=== PATIENT | female | born 1960 | race Caucasian/White ===

== ENCOUNTER 2024-01-05 08:24 | Emergency (ER) | payer MEDICARE, OTHER ==
--- NOTE | 2024-01-05 09:26 | XR ---
EXAMINATION TYPE: XR chest 2V DATE OF EXAM: 01/05/2024 COMPARISON: None HISTORY: 63 year-old female shortness of breath, difficulty breathing TECHNIQUE: AP and lateral views FINDINGS: Heart borderline enlarged. Interstitial density. Hyperinflation. Nodular density at the right base ma y represent nipple shadow. Narrowing of the subacromial space on both sides. No consolidation or pleu ral effusion. IMPRESSION: 1. Borderline cardiomegaly and COPD. Interstitial prominence probably representing bronchitis or asth ma. No focal infiltrate seen. 2. Nodular density right base may represent nipple shadow. An abnormal pulmonary nodule is not exclud ed at this time. Recommend outpatient CT follow-up to exclude a suspicious pulmonary nodule.
[2024-01-05] MEDS: methylPREDNISolone SOD SUCCI 125 MG/2 ML VIAL IV STA (09:53)
[2024-01-05 10:10] LABS: Anisocytosis Slight; Basophils % (A) 0 %; Eosinophils # (A) 0.1 k/uL (0-0.7); Eosinophils % (A) 1 %; HCT 30.3 % (34.0-46.0); HGB 8.6 gm/dL (11.4-16.0); Hypochromasia Marked; Lymphocytes # (A) 1.1 k/uL (1.0-4.8); Lymphocytes % (A) 9 %; MCH 19.3 pg (25.0-35.0); MCHC 28.5 g/dL (31.0-37.0); MCV 67.5 fL (80.0-100.0); Microcytosis Marked; Monocytes # (A) 0.4 k/uL (0-1.0); Monocytes % (A) 3 %; Neutrophils # (A) 10.5 k/uL (1.3-7.7); Neutrophils % (A) 86 %; Platelet Count 407 k/uL (150-450); Poikilocytosis Slight; RBC 4.49 m/uL (3.80-5.40); RDW 19.3 % (11.5-15.5); WBC 12.3 k/uL (3.8-10.6)
[2024-01-05 10:22] LABS: ALT 17 U/L (4-34); AST 39 U/L (14-36); African American GFR (CKD) >90 (>60 ml/min/1.73 sqM); Albumin 3.4 g/dL (3.5-5.0); Alkaline Phosphatase 83 U/L (38-126); Anion Gap 3 mmol/L; Blood Urea Nitrogen 9 mg/dL (7-17); Calcium 8.7 mg/dL (8.4-10.2); Carbon Dioxide 32 mmol/L (22-30); Chloride 102 mmol/L (98-107); Glucose 96 mg/dL (74-99); Magnesium 2.2 mg/dL (1.6-2.3); Non-African American GFR(CKD) >90 (>60 ml/min/1.73 sqM); Potassium 4.4 mmol/L (3.5-5.1); Sodium 137 mmol/L (137-145); Total Bilirubin 0.5 mg/dL (0.2-1.3); Total Protein 6.4 g/dL (6.3-8.2)
--- NOTE | 2024-01-05 10:22 | ED ---
General Adult HPI - General Chief complaint: Shortness of Breath Stated complaint: TREVOR, RM air 96% Time Seen by Provider: 01/05/24 08:29 Source: patient, EMS, RN notes reviewed Mode of arrival: EMS Limitations: no limitations - History of Present Illness Initial comments: 63-year-old female presents emergency department from [place] with chief complaint of shortness of breath. She states that she had pneumonia and was hospitalized in [place]. Patient states that she was discharged on oral antibiotics but she believes she never finished the course of medication. Patient states she does have COPD and is felt short of breath last few days daniele g with fever chills and bodyaches. Patient denies chest pain denies abdominal pain states she is extremely fatigued patient - Related Data Home Medications Medication Instructions Recorded Confirmed Acetaminophen Tab [Tylenol] 650 mg PO Q4H PRN 01/05/24 01/05/24 Calcium/Magnesium/Zinc/Vitamin D 1 tab PO DAILY PRN 01/05/24 01/05/24 Chlorpheniramine Maleate 4 mg PO Q4H PRN 01/05/24 01/05/24 [Chlor-Trimeton] Docusate [Colace] 100 mg PO BID PRN 01/05/24 01/05/24 Ibuprofen [Motrin Ib] 600 mg PO Q6H PRN 01/05/24 01/05/24 Loperamide HCl [Imodium A-D] 4 mg PO BID PRN 01/05/24 01/05/24 Mag Hydrox/Aluminum Hyd/Simeth 30 ml PO Q4H PRN 01/05/24 01/05/24 [Mylanta Maximum Strength Liq] Magnesium Hydroxide [Milk of 2,400 mg PO BID PRN 01/05/24 01/05/24 Magnesia] Multivitamins, Thera [Multivitamin 1 tab PO DAILY 01/05/24 01/05/24 (formulary)] Thiamine [Vitamin B-1] 100 mg PO DAILY 01/05/24 01/05/24 guaiFENesin [guaiFENesin Oral 200 mg PO Q4H PRN 01/05/24 01/05/24 Solution] ondansetron HCL [Zofran] 8 mg PO Q6H PRN 01/05/24 01/05/24 Previous Rx's Medication Instructions Recorded Azithromycin [Zithromax Z Pack] 0 tab PO DIRECTED #6 tab 01/05/24 predniSONE 50 mg PO DAILY #5 tab 01/05/24 Allergies Allergy/AdvReac Type Severity Reaction Status Date / Time No Known Allergies Allergy Verified 01/05/24 10:08 Review of Systems ROS Statement: Those systems with pertinent positive or pertinent negative responses have been documented in the HPI. ROS Other: All systems not noted in ROS Statement are negative. Past Medical History Past Medical History: COPD, Hypertension History of Any Multi-Drug Resistant Organisms: None Reported Past Surgical History: No Surgical Hx Reported Past Psychological History: No Psychological Hx Reported Smoking Status: Current every day smoker Past Alcohol Use History: Abuse General Exam Limitations: no limitations General appearance: alert, in no apparent distress Head exam: Present: atraumatic, normocephalic, normal inspection Eye exam: Present: normal appearance, PERRL, EOMI. Absent: scleral icterus, conjunctival injection, periorbital swelling ENT exam: Present: normal exam, normal oropharynx, mucous membranes moist Neck exam: Present: normal inspection, full ROM. Absent: tenderness, meningismus, lymphadenopathy Respiratory exam: Present: wheezes. Absent: normal lung sounds bilaterally, respiratory distress, rales, rhonchi, stridor Cardiovascular Exam: Present: regular rate, normal rhythm, normal heart sounds. Absent: systolic murmur, diastolic murmur, rubs, gallop, clicks GI/Abdominal exam: Present: soft, normal bowel sounds. Absent: distended, tenderness, guarding, rebound, rigid Course Vital Signs 01/05/24 01/05/24 01/05/24 08:34 08:38 09:51 Temperature 98.6 F Pulse Rate 69 74 Respiratory 22 22 20 Rate Blood Pressure 176/96 152/103 O2 Sat by Pulse 93 L 94 L Oximetry 01/05/24 01/05/24 10:28 11:06 Temperature Pulse Rate 77 83 Respiratory 18 Rate Blood Pressure 170/88 O2 Sat by Pulse 94 L Oximetry EKG Findings - EKG Comments: EKG Findings:: EKG performed at 8: 50 sinus rhythm rate of 70 MT 122 QRS 87 QT/QTc 406/427 - EKG Results: EKG: interpreted by ORQUIDEA Medical Decision Making - Medical Decision Making Was pt. sent in by a medical professional or institution (, PA, E COMMERCE ANALYST, urgent care, hospital, or retirement...) When possible be specific @ -[place] Did you speak to anyone other than the patient for history (EMS, parent, family, police, friend...)? What history was obtained from this source @ -No Did you review nursing and triage notes (agree or disagree)? Why? @ -I reviewed and agree with nursing and triage notes Were old charts reviewed (outside hosp., previous admission, EMS record, old EKG, old radiological studies, urgent care reports/EKG's, retirement records)? Report findings @ -[Reviewed records from [place] Differential Diagnosis (chest pain, altered mental status, abdominal pain women, abdominal pain men, vaginal bleeding, weakness, fever, dyspnea, syncope, headache, dizziness, GI bleed, back pain, seizure, CVA, palpatations, mental health, musculoskeletal)? @ -Differential Dyspnea: Coronary syndrome, arrhythmia, tamponade, asthma, COPD, pulmonary embolism, pneumonia, pneumothorax, pulmonary effusion, anaphylaxis, diabetic ketoacidosis, flailed chest, pulmonary contusion, diaphragmatic rupture, anemia, neuromuscular, this is not meant to be an all-inclusive list. EKG interpreted by me (3pts min.). @ -[As above X-rays interpreted by me (1pt min.). @ -[Chest x-ray shows COPD changes, no definite infiltrate, possible nodule CT interpreted by me (1pt min.). @ -None done U/S interpreted by me (1pt. min.). @ -None done What testing was considered but not performed or refused? (CT, X-rays, U/S, labs)? Why? @ -None What meds were considered but not given or refused? Why? @ -None Did you discuss the management of the patient with other professionals (professionals i.e. , PA, E COMMERCE ANALYST, lab, RT, psych nurse, social work professor, embedded software design engineer, teacher, customs officer, case liner)? Give summary @ -No Was smoking cessation discussed for >3mins.? @ -No Was critical care preformed (if so, how long)? @ -No Were there social determinants of health that impacted care today? How? (Homelessness, low income, unemployed, alcoholism, drug addiction, transportation, low edu. Level, literacy, decrease access to med. care, long-term, rehab)? @ -No Was there de-escalation of care discussed even if they declined (Discuss DNR or withdrawal of care, Hospice)? DNR status @ -No What co-morbidities impacted this encounter? (DM, HTN, Smoking, COPD, CAD, Cancer, CVA, ARF, Chemo, Hep., AIDS, mental health diagnosis, sleep apnea, morbid obesity)? @ -Cocaine abuse, COPD Was patient admitted / discharged? Hospital course, mention meds given and route, prescriptions, significant lab abnormalities, going to OR and other pertinent info. @ -[Discharge patient had no hypoxia in the emergency department she was observed for several hours. She was 94% and above and shows no signs distress. Patient reports recent pneumonia patient will be given antibiotics, steroids for her COPD exacerbation. Return transfer discussed. Attending Dr. Curry Undiagnosed new problem with uncertain prognosis? @ -No Drug Therapy requiring intensive monitoring for toxicity (Heparin, Nitro, Insulin, Cardizem)? @ -No Were any procedures done? @ -No Diagnosis/symptom? @ -COPD exacerbation Acute, or Chronic, or Acute on Chronic? @ -[Acute Uncomplicated (without systemic symptoms) or Complicated (systemic symptoms)? @ -Complicated Side effects of treatment? @ -No Exacerbation, Progression, or Severe Exacerbation? @ -Yes Poses a threat to life or bodily function? How? (Chest pain, [place], [place], pneumonia, PE, COPD, DKA, ARF, appy, cholecystitis, CVA, Diverticulitis, Homicidal, Suicidal, threat to staff... and all critical care pts) @ -Yes low likelihood, COPD exacerbation - Lab Data Result diagrams: 01/05/24 08:55 01/05/24 08:55 Lab Results 01/05/24 01/05/24 01/05/24 Range/Units 08:55 08:55 08:55 WBC 12.3 H (3.8-10.6) k/uL RBC 4.49 (3.80-5.40) m/uL Hgb 8.6 L (11.4-16.0) gm/dL Hct 30.3 L (34.0-46.0) % MCV 67.5 L (80.0-100.0) fL MCH 19.3 L (25.0-35.0) pg MCHC 28.5 L (31.0-37.0) g/dL RDW 19.3 H (11.5-15.5) % Plt Count 407 (150-450) k/uL MPV 7.0 Neutrophils % 86 % Lymphocytes % 9 % Monocytes % 3 % Eosinophils % 1 % Basophils % 0 % Neutrophils # 10.5 H (1.3-7.7) k/uL Lymphocytes # 1.1 (1.0-4.8) k/uL Monocytes # 0.4 (0-1.0) k/uL Eosinophils # 0.1 (0-0.7) k/uL Basophils # 0.0 (0-0.2) k/uL Hypochromasia Marked Poikilocytosis Slight Anisocytosis Slight Microcytosis Marked Sodium 137 (137-145) mmol/L Potassium 4.4 (3.5-5.1) mmol/L Chloride 102 (98-107) mmol/L Carbon Dioxide 32 H (22-30) mmol/L Anion Gap 3 mmol/L BUN 9 (7-17) mg/dL Creatinine 0.54 (0.52-1.04) mg/dL Est GFR (CKD-EPI)AfAm >90 (>60 ml/min/1.73 sqM) Est GFR (CKD-EPI)NonAf >90 (>60 ml/min/1.73 sqM) Glucose 96 (74-99) mg/dL Plasma Lactic Acid Sandro 1.0 (0.7-2.0) mmol/L Calcium 8.7 (8.4-10.2) mg/dL Magnesium 2.2 (1.6-2.3) mg/dL Total Bilirubin 0.5 (0.2-1.3) mg/dL AST 39 H (14-36) U/L ALT 17 (4-34) U/L Alkaline Phosphatase 83 (38-126) U/L NT-Pro-B Natriuret Pep 2030 pg/mL Total Protein 6.4 (6.3-8.2) g/dL Albumin 3.4 L (3.5-5.0) g/dL Influenza Type A (PCR) (Not Detectd) Influenza Type B (PCR) (Not Detectd) RSV (PCR) (Not Detectd) SARS-CoV-2 (PCR) (Not Detectd) 01/05/24 Range/Units 08:55 WBC (3.8-10.6) k/uL RBC (3.80-5.40) m/uL Hgb (11.4-16.0) gm/dL Hct (34.0-46.0) % MCV (80.0-100.0) fL MCH (25.0-35.0) pg MCHC (31.0-37.0) g/dL RDW (11.5-15.5) % Plt Count (150-450) k/uL MPV Neutrophils % % Lymphocytes % % Monocytes % % Eosinophils % % Basophils % % Neutrophils # (1.3-7.7) k/uL Lymphocytes # (1.0-4.8) k/uL Monocytes # (0-1.0) k/uL Eosinophils # (0-0.7) k/uL Basophils # (0-0.2) k/uL Hypochromasia Poikilocytosis Anisocytosis Microcytosis Sodium (137-145) mmol/L Potassium (3.5-5.1) mmol/L Chloride (98-107) mmol/L Carbon Dioxide (22-30) mmol/L Anion Gap mmol/L BUN (7-17) mg/dL Creatinine (0.52-1.04) mg/dL Est GFR (CKD-EPI)AfAm (>60 ml/min/1.73 sqM) Est GFR (CKD-EPI)NonAf (>60 ml/min/1.73 sqM) Glucose (74-99) mg/dL Plasma Lactic Acid Sandro (0.7-2.0) mmol/L Calcium (8.4-10.2) mg/dL Magnesium (1.6-2.3) mg/dL Total Bilirubin (0.2-1.3) mg/dL AST (14-36) U/L ALT (4-34) U/L Alkaline Phosphatase (38-126) U/L NT-Pro-B Natriuret Pep pg/mL Total Protein (6.3-8.2) g/dL Albumin (3.5-5.0) g/dL Influenza Type A (PCR) Not Detected (Not Detectd) Influenza Type B (PCR) Not Detected (Not Detectd) RSV (PCR) Not Detected (Not Detectd) SARS-CoV-2 (PCR) Not Detected (Not Detectd) Disposition Clinical Impression: COPD exacerbation Disposition: HOME SELF-CARE Condition: Stable Instructions (If sedation given, give patient instructions): COPD (Chronic Obstructive Pulmonary Disease) (ED) Additional Instructions: Please return to the Emergency Department if symptoms worsen or any other concerns. Prescriptions: predniSONE 50 mg PO DAILY #5 tab Azithromycin [Zithromax Z Pack] 0 tab PO DIRECTED #6 tab Is patient prescribed a controlled substance at d/c from ED?: No Referrals: None,Stated [Primary Care Provider] - 1-2 days Time of Disposition: 11:20
[2024-01-05 10:27] LABS: NT-Pro-B-Type Natriuretic Pept 2030 pg/mL
[2024-01-05 10:30] VITALS: RESP 18
[2024-01-05] MEDS ORDERED: MORPHINE SULFATE 4 MG/ML SYRINGE IM STA (10:59)
[2024-01-05] MEDS: IPRATROPIUM-ALBUTEROL 3 ML NEB INHALATION STA (11:06)
[2024-01-05] MEDS: cefTRIAXone IN SWFI 1,000 MG/10 ML SYRINGE IVP STA (11:40)
[2024-01-05 12:13] VITALS: BP 177/88; PULSE 80; TEMP 98.1
== END 2024-01-05 11:55 | disposition home or self-care (01) ==
LOC: EC 08:24
DX: J44.1 Chronic obstructive pulmonary disease with (acute) exacerbation (principal); I10 Essential (primary) hypertension; F17.200 Nicotine dependence, unspecified, uncomplicated; I25.2 Old myocardial infarction; Z20.822 Contact with and (suspected) exposure to COVID-19
CPT/HCPCS: 36415; 94640; 93005; 83880; 80053; 83605; 83735; 85025; 87636; 71046; 99285; 96374; 96375; J2930; J0696

== ENCOUNTER 2024-01-11 20:03 | Inpatient (IN) | payer MEDICARE ==
--- NOTE | 2024-01-11 20:18 | ED ---
General Adult HPI - General Chief complaint: Shortness of Breath Stated complaint: Shortness of Breath Time Seen by Provider: 01/11/24 20:14 Source: patient, EMS Mode of arrival: EMS - History of Present Illness Initial comments: This patient is 63-year-old woman who arrives here from [facility] to have evaluation for shortness of breath and cough. The patient states this been getting worse over the past 2 days. She has not noted definite fever. She states that it feels similar to previous episode of pneumonia. In addition the patient states she has been having problems with constipation going back approximately one week. She states that her last bowel movement was approximately 5 or 6 days ago and she describes as "a torpedo". She complains of diffuse abdominal cramping and urge to defecate Onset/Timin -: days(s) Location: abdomen Radiation: non-radiation Quality: other (Cramping pain) Consistency: constant Improves with: none Worsens with: none Associated Symptoms: cough, other (Constipation) Treatments Prior to Arrival: none - Related Data Home Medications Medication Instructions Recorded Confirmed Acetaminophen Tab [Tylenol] 650 mg PO Q4H PRN 01/05/24 01/11/24 Multivitamins, Thera [Multivitamin 1 tab PO DAILY 01/05/24 01/11/24 (formulary)] Thiamine [Vitamin B-1] 100 mg PO DAILY 01/05/24 01/11/24 guaiFENesin [guaiFENesin Oral 200 mg PO Q4H PRN 01/05/24 01/11/24 Solution] ondansetron HCL [Zofran] 8 mg PO Q6H PRN 01/05/24 01/11/24 Albuterol Nebulized [Ventolin 2.5 mg INHALATION RT-Q4H PRN 01/11/24 01/11/24 Nebulized] Previous Rx's Medication Instructions Recorded Aspirin 81 mg PO DAILY #30 tab 01/14/24 Atorvastatin [Lipitor] 40 mg PO DAILY #30 tab 01/14/24 Budesonide-Formot 160-4.5 Mcg 2 puff INHALATION RT-BID #1 each 01/14/24 [Symbicort 160-4.5 Mcg Inhaler] Docusate [Colace] 100 mg PO BID #60 capsule 01/14/24 Ferrous Sulfate [Feosol] 325 mg PO BID #60 tab 01/14/24 Losartan [Cozaar] 75 mg PO DAILY 30 Days #90 tab 01/14/24 Nicotine 21Mg/24Hr Patch [Habitrol] 1 patch TRANSDERM DAILY patch 01/14/24 Omeprazole [PriLOSEC] 20 mg PO AC-BID #60 cap 01/14/24 Oseltamivir Phosphate 30 mg PO Q12H 5 Days #50 ml 01/14/24 predniSONE 0 mg PO DIRECTED 16 Days #38 tab 01/14/24 Allergies Allergy/AdvReac Type Severity Reaction Status Date / Time No Known Allergies Allergy Verified 01/11/24 21:44 Review of Systems ROS Statement: Those systems with pertinent positive or pertinent negative responses have been documented in the HPI. ROS Other: All systems not noted in ROS Statement are negative. Constitutional: Reports: fever, chills. Denies: weakness Respiratory: Reports: cough, dyspnea, wheezes. Denies: hemoptysis Cardiovascular: Denies: chest pain, palpitations, edema, syncope Gastrointestinal: Reports: abdominal pain, nausea, constipation. Denies: vomiting, diarrhea, melena, hematochezia Genitourinary: Denies: dysuria, hematuria Musculoskeletal: Denies: back pain Skin: Denies: rash Neurological: Denies: headache, weakness, numbness Past Medical History Past Medical History: COPD, Hypertension History of Any Multi-Drug Resistant Organisms: None Reported Past Surgical History: No Surgical Hx Reported Past Psychological History: No Psychological Hx Reported Smoking Status: Current every day smoker Past Alcohol Use History: Abuse - Past Family History Father Family Medical History: Congestive Heart Failure (CHF) Additional Family Medical History / Comment(s): Mother Family Medical History: Cancer Additional Family Medical History / Comment(s): lung. Sister(s) Family Medical History: COPD Additional Family Medical History / Comment(s): passes away General Exam General appearance: alert, in no apparent distress Head exam: Present: atraumatic, normocephalic Eye exam: Present: normal appearance. Absent: scleral icterus, conjunctival injection ENT exam: Present: normal oropharynx Neck exam: Present: normal inspection Respiratory exam: Present: wheezes, rales (Right base), rhonchi. Absent: respiratory distress, stridor, accessory muscle use, decreased breath sounds Cardiovascular Exam: Present: regular rate, normal rhythm, normal heart sounds. Absent: systolic murmur, diastolic murmur, rubs, gallop GI/Abdominal exam: Present: soft. Absent: distended, tenderness, guarding, rebound, rigid, mass Extremities exam: Present: normal inspection, normal capillary refill. Absent: pedal edema, calf tenderness Back exam: Present: normal inspection. Absent: CVA tenderness (R), CVA tenderness (L) Neurological exam: Present: alert Skin exam: Present: warm, dry, intact, normal color. Absent: rash Course Vital Signs 01/11/24 01/11/24 01/11/24 20:05 20:30 21:00 Temperature 102.4 F H Pulse Rate 93 95 89 Pulse Rate [ Pulse Oximetery ] Respiratory 20 32 H 22 Rate Blood Pressure 158/82 161/76 144/70 Blood Pressure [Right Arm] O2 Sat by Pulse 92 L 91 L 98 Oximetry 01/11/24 01/11/24 01/11/24 21:08 21:30 22:00 Temperature Pulse Rate 97 93 89 Pulse Rate [ Pulse Oximetery ] Respiratory 24 25 H 26 H Rate Blood Pressure 158/80 158/80 176/86 Blood Pressure [Right Arm] O2 Sat by Pulse 93 L 93 L 95 Oximetry 01/11/24 01/11/24 01/12/24 22:30 23:00 00:21 Temperature Pulse Rate 89 87 88 Pulse Rate [ Pulse Oximetery ] Respiratory 27 H 24 Rate Blood Pressure 161/88 158/80 Blood Pressure [Right Arm] O2 Sat by Pulse 93 L 93 L Oximetry 01/12/24 01/12/24 01/12/24 00:25 00:32 01:35 Temperature 100.1 F H 98.1 F Pulse Rate 99 Pulse Rate [ Pulse Oximetery ] Respiratory Rate Blood Pressure Blood Pressure [Right Arm] O2 Sat by Pulse Oximetry 01/12/24 01/12/24 01/12/24 03:53 06:33 06:40 Temperature Pulse Rate 78 100 89 Pulse Rate [ Pulse Oximetery ] Respiratory 24 19 Rate Blood Pressure 130/91 168/83 Blood Pressure [Right Arm] O2 Sat by Pulse 99 98 Oximetry 01/12/24 01/12/24 01/12/24 06:46 07:25 08:57 Temperature Pulse Rate 94 83 Pulse Rate [ Pulse Oximetery ] Respiratory Rate Blood Pressure 168/83 Blood Pressure [Right Arm] O2 Sat by Pulse 100 96 Oximetry 01/12/24 01/12/24 01/12/24 10:30 12:11 12:22 Temperature Pulse Rate 91 89 Pulse Rate [ 85 Pulse Oximetery ] Respiratory 22 Rate Blood Pressure Blood Pressure [Right Arm] O2 Sat by Pulse 98 Oximetry 01/12/24 01/12/24 14:23 15:05 Temperature 98.0 F Pulse Rate Pulse Rate [ 76 81 Pulse Oximetery ] Respiratory 18 16 Rate Blood Pressure Blood Pressure 102/52 133/69 [Right Arm] O2 Sat by Pulse 97 94 L Oximetry EKG Findings - EKG Results: EKG: interpreted by ERMD, sinus rhythm (With occasional supraventricular premature complexes, rate 95 bpm), normal axis - HI, Pacemaker, Normal: Myocardial infarction: septal HI (old age or indeterminate) Medical Decision Making - Medical Decision Making The patient had chest x-ray which I interpreted to show right lower lobe infiltrate. I also suspect underlying COPD. The patient was sent for computed tomography scan of the abdomen which I interpreted to show changes concerning for possible intussusception versus possible postsurgical change related to gastric bypass. This was discussed with Dr. Wilson who will see the patient as medical sales consultant tomorrow. Was pt. sent in by a medical professional or institution (, PA, INFORMATICS DEVELOPER, urgent care, hospital, or long term...) When possible be specific @ -[No] Did you speak to anyone other than the patient for history (EMS, parent, family, police, friend...)? What history was obtained from this source @ -[No] Did you review nursing and triage notes (agree or disagree)? Why? @ -[I reviewed and agree with nursing and triage notes] Were old charts reviewed (outside hosp., previous admission, EMS record, old EKG, old radiological studies, urgent care reports/EKG's, long term records)? Report findings @ -[No old charts were reviewed] Differential Diagnosis (chest pain, altered mental status, abdominal pain women, abdominal pain men, vaginal bleeding, weakness, fever, dyspnea, syncope, headache, dizziness, GI bleed, back pain, seizure, CVA, palpatations, mental health, musculoskeletal)? @ -[Differential Dyspnea: Coronary syndrome, arrhythmia, tamponade, asthma, COPD, pulmonary embolism, pneumonia, pneumothorax, pulmonary effusion, anaphylaxis, diabetic ketoacidosis, flailed chest, pulmonary contusion, diaphragmatic rupture, anemia, neuromuscular, this is not meant to be an all-inclusive list. Differential Abdominal Pain Women: Appendicitis, Cholecystitis, diverticulosis, ischemic bowel, pancreatitis, hepatitis, UTI, gastroenteritis, AAA, incarcerated hernia, bowel obstruction, constipation, inflammatory bowel, hepatitis, peptic ulcer disease, splenic infarction, perforated viscus, vulvitis, ovarian torsion, PID, kidney stone, placenta abruption, this is not meant to be an all-inclusive list EKG interpreted by me (3pts min.). @ -[I interpreted as above X-rays interpreted by me (1pt min.). @ -[I interpreted as above CT interpreted by me (1pt min.). @ -[I interpreted as above U/S interpreted by me (1pt. min.). @ -[None done] What testing was considered but not performed or refused? (CT, X-rays, U/S, labs)? Why? @ -[None] What meds were considered but not given or refused? Why? @ -[None] Did you discuss the management of the patient with other professionals (professionals i.e. , PA, INFORMATICS DEVELOPER, lab, RT, psych nurse, social worker masters, ultrasound technol, teacher, personal banking officer, case resolution specialist)? Give summary @ -[The patient's case discussed with the admitting physician and with the surgical product sales consultant and treatment recommendations are incorporated Was smoking cessation discussed for >3mins.? @ -[Yes, discussed smoking cessation Was critical care preformed (if so, how long)? @ -[No] Were there social determinants of health that impacted care today? How? (Homelessness, low income, unemployed, alcoholism, drug addiction, transportation, low edu. Level, literacy, decrease access to med. care, fci, rehab)? @ -[No] Was there de-escalation of care discussed even if they declined (Discuss DNR or withdrawal of care, Hospice)? DNR status @ -[No] What co-morbidities impacted this encounter? (DM, HTN, Smoking, COPD, CAD, Cancer, CVA, ARF, Chemo, Hep., AIDS, mental health diagnosis, sleep apnea, morbid obesity)? @ -[COPD, smoking Was patient admitted / discharged? Hospital course, mention meds given and route, prescriptions, significant lab abnormalities, going to OR and other pertinent info. @ -[The patient will be admitted to have further treatment for COPD exacerbation with possible right lower lobe infiltrate. Patient will also have surgical consultation related to her abdominal pain. Cardiology consultation related to NSTEMI Undiagnosed new problem with uncertain prognosis? @ -[No] Drug Therapy requiring intensive monitoring for toxicity (Heparin, Nitro, Insulin, Cardizem)? @ -[No] Were any procedures done? @ -[No] Diagnosis/symptom? @ -[Acute exacerbation of COPD Acute influenza Possible right lower lobe infiltrate Acute abdominal pain Acute NSTEMI Acute, or Chronic, or Acute on Chronic? @ -[Acute on chronic COPD, other conditions acute Uncomplicated (without systemic symptoms) or Complicated (systemic symptoms)? @ -[Uncomplicated Side effects of treatment? @ -[No] Exacerbation, Progression, or Severe Exacerbation? @ -[No] Poses a threat to life or bodily function? How? (Chest pain, USA, HI, pneumonia, PE, COPD, DKA, ARF, appy, cholecystitis, CVA, Diverticulitis, Homicidal, Suicidal, threat to staff... and all critical care pts) @ -[Yes - Lab Data Result diagrams: 01/13/24 09:05 01/11/24 20:45 Lab Results 01/11/24 01/11/24 01/11/24 Range/Units 20:45 20:45 20:45 WBC 11.9 H (3.8-10.6) k/uL RBC 3.95 (3.80-5.40) m/uL Hgb 7.7 L (11.4-16.0) gm/dL Hct 26.6 L (34.0-46.0) % MCV 67.4 L (80.0-100.0) fL MCH 19.4 L (25.0-35.0) pg MCHC 28.8 L (31.0-37.0) g/dL RDW 19.5 H (11.5-15.5) % Plt Count 417 (150-450) k/uL MPV 7.7 Neutrophils % 90 % Lymphocytes % 4 % Monocytes % 4 % Eosinophils % 0 % Basophils % 0 % Neutrophils # 10.8 H (1.3-7.7) k/uL Lymphocytes # 0.5 L (1.0-4.8) k/uL Monocytes # 0.4 (0-1.0) k/uL Eosinophils # 0.0 (0-0.7) k/uL Basophils # 0.1 (0-0.2) k/uL Hypochromasia Marked Poikilocytosis Slight Anisocytosis Slight Microcytosis Marked PT 10.3 (10.0-12.5) sec INR 0.9 (<1.2) APTT 24.0 (22.0-30.0) sec Sodium 138 (137-145) mmol/L Potassium 4.0 (3.5-5.1) mmol/L Chloride 101 (98-107) mmol/L Carbon Dioxide 30 (22-30) mmol/L Anion Gap 7 mmol/L BUN 26 H (7-17) mg/dL Creatinine 0.80 (0.52-1.04) mg/dL Est GFR (CKD-EPI)AfAm >90 (>60 ml/min/1.73 sqM) Est GFR (CKD-EPI)NonAf 80 (>60 ml/min/1.73 sqM) Glucose 88 (74-99) mg/dL Plasma Lactic Acid Sandro (0.7-2.0) mmol/L Calcium 8.0 L (8.4-10.2) mg/dL Total Bilirubin 0.2 (0.2-1.3) mg/dL AST 34 (14-36) U/L ALT 22 (4-34) U/L Alkaline Phosphatase 80 (38-126) U/L Troponin I (0.000-0.034) ng/mL Total Protein 6.2 L (6.3-8.2) g/dL Albumin 3.4 L (3.5-5.0) g/dL Influenza Type A (PCR) (Not Detectd) Influenza Type B (PCR) (Not Detectd) RSV (PCR) (Not Detectd) SARS-CoV-2 (PCR) (Not Detectd) 01/11/24 01/11/24 01/11/24 Range/Units 20:45 20:45 20:45 WBC (3.8-10.6) k/uL RBC (3.80-5.40) m/uL Hgb (11.4-16.0) gm/dL Hct (34.0-46.0) % MCV (80.0-100.0) fL MCH (25.0-35.0) pg MCHC (31.0-37.0) g/dL RDW (11.5-15.5) % Plt Count (150-450) k/uL MPV Neutrophils % % Lymphocytes % % Monocytes % % Eosinophils % % Basophils % % Neutrophils # (1.3-7.7) k/uL Lymphocytes # (1.0-4.8) k/uL Monocytes # (0-1.0) k/uL Eosinophils # (0-0.7) k/uL Basophils # (0-0.2) k/uL Hypochromasia Poikilocytosis Anisocytosis Microcytosis PT (10.0-12.5) sec INR (<1.2) APTT (22.0-30.0) sec Sodium (137-145) mmol/L Potassium (3.5-5.1) mmol/L Chloride (98-107) mmol/L Carbon Dioxide (22-30) mmol/L Anion Gap mmol/L BUN (7-17) mg/dL Creatinine (0.52-1.04) mg/dL Est GFR (CKD-EPI)AfAm (>60 ml/min/1.73 sqM) Est GFR (CKD-EPI)NonAf (>60 ml/min/1.73 sqM) Glucose (74-99) mg/dL Plasma Lactic Acid Sandro 1.5 (0.7-2.0) mmol/L Calcium (8.4-10.2) mg/dL Total Bilirubin (0.2-1.3) mg/dL AST (14-36) U/L ALT (4-34) U/L Alkaline Phosphatase (38-126) U/L Troponin I 0.079 H* (0.000-0.034) ng/mL Total Protein (6.3-8.2) g/dL Albumin (3.5-5.0) g/dL Influenza Type A (PCR) Detected A (Not Detectd) Influenza Type B (PCR) Not Detected (Not Detectd) RSV (PCR) Not Detected (Not Detectd) SARS-CoV-2 (PCR) Not Detected (Not Detectd) Disposition Clinical Impression: Anemia, Sepsis, Influenza A, COPD (chronic obstructive pulmonary disease), NSTEMI (non-ST elevated myocardial infarction) Disposition: ADMITTED IP TO THIS HOSP Condition: Fair
--- NOTE | 2024-01-11 20:55 | XR ---
EXAMINATION TYPE: XR chest 2V DATE OF EXAM: 01/11/2024 COMPARISON: 01/05/2024 HISTORY: Difficulty breathing TECHNIQUE: Frontal and lateral views of the chest are obtained. FINDINGS: There is increasing partially consolidative opacity in the right lower lobe consistent with an acute pneumonia. There is mild diffuse interstitial prominence which may be chronic in nature. The pulmonary vasculature are normal. There is no pleural effusion. The osseous structures are intact. IMPRESSION: Acute cardiopulmonary disease and right lung base as described above. The findings are s uggestive of a developing pneumonia. Short-term follow-up to resolution is recommended.
[2024-01-11 20:56] LABS: Anisocytosis Slight; Basophils # (A) 0.1 k/uL (0-0.2); Basophils % (A) 0 %; Eosinophils % (A) 0 %; HCT 26.6 % (34.0-46.0); HGB 7.7 gm/dL (11.4-16.0); Hypochromasia Marked; Lymphocytes # (A) 0.5 k/uL (1.0-4.8); Lymphocytes % (A) 4 %; MCH 19.4 pg (25.0-35.0); MCHC 28.8 g/dL (31.0-37.0); MCV 67.4 fL (80.0-100.0); Mean Platelet Volume 7.7; Microcytosis Marked; Monocytes # (A) 0.4 k/uL (0-1.0); Monocytes % (A) 4 %; Neutrophils # (A) 10.8 k/uL (1.3-7.7); Neutrophils % (A) 90 %; Platelet Count 417 k/uL (150-450); Poikilocytosis Slight; RBC 3.95 m/uL (3.80-5.40); RDW 19.5 % (11.5-15.5); WBC 11.9 k/uL (3.8-10.6)
[2024-01-11 21:08] LABS: INR 0.9 (<1.2); Prothrombin Time 10.3 sec (10.0-12.5)
[2024-01-11 21:12] LABS: ALT 22 U/L (4-34); AST 34 U/L (14-36); African American GFR (CKD) >90 (>60 ml/min/1.73 sqM); Albumin 3.4 g/dL (3.5-5.0); Alkaline Phosphatase 80 U/L (38-126); Anion Gap 7 mmol/L; Blood Urea Nitrogen 26 mg/dL (7-17); Carbon Dioxide 30 mmol/L (22-30); Chloride 101 mmol/L (98-107); Glucose 88 mg/dL (74-99); Non-African American GFR(CKD) 80 (>60 ml/min/1.73 sqM); Sodium 138 mmol/L (137-145); Total Bilirubin 0.2 mg/dL (0.2-1.3); Total Protein 6.2 g/dL (6.3-8.2)
[2024-01-11] MEDS: SODIUM CHLORIDE 0.9% 1,100 ML IV ONE (21:29)
[2024-01-11] MEDS: AZITHROMYCIN 500 MG TAB PO STA (21:35)
[2024-01-11] MEDS: NA PHOS,M-B/NA PHOS,DI-BA 133 ML ENEMA RECTAL STA (22:31)
[2024-01-11] MEDS ORDERED: PNEUMONIA PROTOCOL UTILIZED 1 EACH MISC PO PRN (23:36)
[2024-01-11] MEDS ORDERED: ONDANSETRON ODT 4 MG TAB PO PRN (23:39)
--- NOTE | 2024-01-12 00:03 | CT ---
EXAMINATION TYPE: CT abdomen pelvis w con DATE OF EXAM: 01/11/2024 HISTORY: upper abdominal pain. History of lap band. CT DLP: 702.4mGycm Automated Exposure Control for Dose Reduction was Utilized. CONTRAST: CT scan of the abdomen and pelvis is performed with IV Contrast, patient injected with 100 ml mL of I sovue 300. COMPARISON: None. FINDINGS: LUNG BASES: Suboptimal evaluation due to motion artifact. No focal consolidation. Calcification at le dayan of the mitral valve is partially imaged LIVER/GB: Contracted gallbladder. Approximate 4 scattered subcentimeter hypodense lesions throughout the liver that are too small to further characterize. There is prominent right hepatic lobe and/or he patomegaly. PANCREAS: No significant abnormality is seen. SPLEEN: No significant abnormality is seen. ADRENALS: No significant abnormality is seen. KIDNEYS: There is 1 to 2 mm nonobstructing calculus upper pole left kidney coronal image 91. There is 3 mm nonobstructing calculus left kidney on image 84. There is 1.1 cm simple appearing thin-walled c yst in the left kidney image 22. No right-sided nephrolithiasis. There is symmetric cortical uptake a nd excretion without hydronephrosis seen bilaterally. No intraluminal calculus in the urinary bladder . Occasional tiny right-sided pelvic phlebolith. BOWEL: Evaluation of bowel suboptimal due to lack of enteric contrast and patient having little inter nal fat. No abnormal small or large bowel dilatation is seen. Surgical changes in the epigastric stacy on from gastric bypass are present. Bypass distal stomach shows poor distention with moderate to jennifer re wall thickening. Cannot exclude gastritis. Additional surgical sutures involving small bowel loops in the anterior upper pelvis. UTERUS/ADNEXA: No gross abnormality seen. LYMPH NODES: No greater than 1cm abdominal or pelvic lymph nodes are appreciated. OSSEOUS STRUCTURES: Mild Disc space narrowing with vacuum disc phenomenon left L5-S1 level. Moderate narrowing of both hip joints. Deformity to both hips is present. OTHER: Ectatic abdominal aorta with mild calcified plaque. IMPRESSION: Postsurgical change to the stomach suspect gastric bypass. Suboptimal evaluation of bowel . No bowel obstruction. Consider gastritis of the bypassed distal stomach. Correlate clinically.
[2024-01-12] MEDS: ALBUTEROL NEBULIZED 2.5 MG/3 ML INHALATION PRN (00:25)
[2024-01-12] MEDS: ACETAMINOPHEN TAB 325 MG TAB PO STA (00:36)
[2024-01-12] MEDS: SODIUM CHLORIDE 0.9% 1,000 ML IV STA (00:38)
--- NOTE | 2024-01-12 05:10 | P.CNPUL ---
History of Present Illness Consult date: 01/12/24 Requesting physician: Khoa Cleveland Reason for consult: COPD, pneumonia Chief complaint: Shortness of breath and cough History of present illness: I am seeing this patient in consultation today 01/12/2024 in the emergency room after she was sent in from [facility] after being found to be short of breath and hypoxic. Patient is a 63-year-old white female with past medical history significant for polysubstance abuse as well as heavy alcohol use, COPD, current everyday smoker, hypertension. She was also recently hospitalized at [facility] for pneumonia. She is unable to give me a clear date on when this occurred, states possibly a month ago. She states that she left AGAINST MEDICAL ADVICE, and is unlikely if patient ever completed a course of antibiotics. Patient is hypertalkative and aggressive with questioning. Of note, the patient was recently evaluated at our ED on 01/05/2024 for similar symptoms. Chest x-ray at that time showed borderline cardiomegaly and COPD. Interstitial prominence, possibly bronchitis. No focal infiltrates were seen at that time. There was possible a nodular density versus possible artifact and nipple shadowing. She was sent home from the emergency department with a Z-Osorio and prednisone burst taper. She was at [facility] when she was noted to be short of breath and hypoxic, and was sent to the emergency room last night. She will not answer direct questions about her previous alcohol/substance abuse. She yells that she is 17 years clean. Patient is complaining of multiple symptoms including shortness of breath, cough with green and yellow sputum, high fevers of 102 to 103 F. She is also having diffuse abdominal cramping and uncontrollable diarrhea. It is unclear on just how long the symptoms have been ongoing for. She states that she never really completely recovered from her hospitalization at [facility]. She was noted to be influenza A positive on arrival, note that this was negative on previous mentioned ER visit. Follow- up chest x-ray on this admission shows a right middle lobe infiltrate. There is also hyperinflation consistent with COPD. CBC on arrival: WC count 11.9, h emoglobin 7.7, hematocrit 26.6, platelets 417. BMP on arrival unremarkable. BUN 26, creatinine 0.8. Saline infusing at 130 MLS per hour. Lactic acid level 1.5. Troponins elevated at 0.079 and 0.085. She is not having any chest pain. ECG shows normal sinus rhythm with occasional supraventricular premature complexes. No obvious acute ischemic changes. Patient's major concern at this point is abdominal pain, diarrhea, and nausea and vomiting. She has had multiple bouts of diarrhea stool for this evening. Denies any keiry blood or melena. Denies any hematemesis. She has had a previous gastric bypass. Abdominal and pelvis CT with contrast shows postsurgical changes to the stomach suspect gastric bypass, technically suboptimal evaluation of bowel. No obvious bowel obstruction. She is currently at the edge of the bed, on 2 L/min nasal cannula, in no respiratory distress. SpO2 is 99% on bedside monitor. Tmax at our facility 102.4 F. Vital signs are stable. Review of Systems REVIEW OF SYSTEMS: CONSTITUTIONAL: Denies any recent significant weight loss or weight gain. EYES: Denies change in vision. EARS, NOSE, MOUTH, THROAT: Denies headaches, denies sore throat. CARDIOVASCULAR: Denies chest pain, palpitations or syncopal episodes. RESPIRATORY: See HPI. GASTROINTESTINAL: See HPI GENITOURINARY: Denies hematuria, denies infections. MUSKULOSKELETAL: Denies pain, denies swelling. INTEGUMENTARY: Denies rash, denies eczema. NEUROLOGICAL: Denies recent memory loss, no recent seizure activity. PSYCHIATRIC: Denies anxiety, denies depression. HEMATOLOGIC/LYMPHATIC: Denies anemia, denies enlarged lymph node Past Medical History Past Medical History: COPD, Hypertension History of Any Multi-Drug Resistant Organisms: None Reported Past Surgical History: No Surgical Hx Reported Past Psychological History: No Psychological Hx Reported Smoking Status: Current every day smoker Past Alcohol Use History: Abuse Medications and Allergies Home Medications Medication Instructions Recorded Confirmed Type Acetaminophen Tab [Tylenol] 650 mg PO Q4H PRN 01/05/24 01/11/24 History Calcium/Magnesium/Zinc/Vitamin D 1 tab PO DAILY PRN 01/05/24 01/11/24 History Chlorpheniramine Maleate 4 mg PO Q4H PRN 01/05/24 01/11/24 History [Chlor-Trimeton] Docusate [Colace] 100 mg PO BID PRN 01/05/24 01/11/24 History Ibuprofen [Motrin Ib] 600 mg PO Q6H PRN 01/05/24 01/11/24 History Loperamide HCl [Imodium A-D] 4 mg PO BID PRN 01/05/24 01/11/24 History Mag Hydrox/Aluminum Hyd/Simeth 30 ml PO Q4H PRN 01/05/24 01/11/24 History [Mylanta Maximum Strength Liq] Magnesium Hydroxide [Milk of 2,400 mg PO BID PRN 01/05/24 01/11/24 History Magnesia] Multivitamins, Thera [Multivitamin 1 tab PO DAILY 01/05/24 01/11/24 History (formulary)] Thiamine [Vitamin B-1] 100 mg PO DAILY 01/05/24 01/11/24 History guaiFENesin [guaiFENesin Oral 200 mg PO Q4H PRN 01/05/24 01/11/24 History Solution] ondansetron HCL [Zofran] 8 mg PO Q6H PRN 01/05/24 01/11/24 History Albuterol Nebulized [Ventolin 2.5 mg INHALATION RT-Q4H PRN 01/11/24 01/11/24 History Nebulized] Azithromycin [Zithromax Z Pack] See Taper PO DIRECTED 01/11/24 01/11/24 History Allergies Allergy/AdvReac Type Severity Reaction Status Date / Time No Known Allergies Allergy Verified 01/11/24 21:44 Physical Exam Vitals: Vital Signs Temp Pulse Resp BP Pulse Ox 01/12/24 03:53 78 24 130/91 99 01/12/24 01:35 98.1 F 01/12/24 00:32 99 01/12/24 00:25 100.1 F H 01/12/24 00:21 88 01/11/24 23:00 87 24 158/80 93 L 01/11/24 22:30 89 27 H 161/88 93 L 01/11/24 22:00 89 26 H 176/86 95 01/11/24 21:30 93 25 H 158/80 93 L 01/11/24 21:08 97 24 158/80 93 L 01/11/24 21:00 89 22 144/70 98 01/11/24 20:30 95 32 H 161/76 91 L 01/11/24 20:05 102.4 F H 93 20 158/82 92 L Intake and Output 02/01/11/24 01/12/24 14:59 22:59 06:59 Other: Weight 48.988 kg GENERAL EXAM: Alert, 63-year-old white female, disheveled, hypertalkative and aggressive with interview, occasionally grabs her abdomen and apparent discomfort. HEAD: Normocephalic and atraumatic EYES: Normal reaction of pupils, equal size. NOSE: Clear with pink turbinates. THROAT: No erythema or exudates. NECK: No masses, no JVD. CHEST: No chest wall deformity. LUNGS: Equal air entry with scattered wheezing and rales heard at the right base. On 2 L/min nasal cannula. SpO2 99%. No conversational dyspnea or accessory muscle use.. CVS: S1 and S2 normal with no audible murmur, regular rhythm. No extra heart sounds ABDOMEN: No hepatosplenomegaly, hyperactive bowel sounds, no guarding or rigidity. SPINE: No scoliosis or deformity SKIN: No rashes CENTRAL NERVOUS SYSTEM: No focal deficits, tone is normal in all 4 extremities. EXTREMITIES: There is no peripheral edema, clubbing, or cyanosis. Peripheral pulses are intact. Results - Laboratory Findings CBC and BMP: 01/11/24 20:45 01/11/24 20:45 PT/INR, D-dimer PT 10.3 sec (10.0-12.5) 01/11/24 20:45 INR 0.9 (<1.2) 01/11/24 20:45 Abnormal lab findings: Abnormal Labs 01/11/24 01/11/24 01/11/24 20:45 20:45 20:45 WBC 11.9 H Hgb 7.7 L Hct 26.6 L MCV 67.4 L MCH 19.4 L MCHC 28.8 L RDW 19.5 H Neutrophils # 10.8 H Lymphocytes # 0.5 L BUN 26 H Calcium 8.0 L Troponin I 0.079 H* Total Protein 6.2 L Albumin 3.4 L Influenza Type A (PCR) 01/11/24 01/12/24 20:45 00:49 WBC Hgb Hct MCV MCH MCHC RDW Neutrophils # Lymphocytes # BUN Calcium Troponin I 0.085 H* Total Protein Albumin Influenza Type A (PCR) Detected A - Diagnostic Findings Chest x-ray: image reviewed Assessment and Plan Assessment: Acute COPD exacerbation, secondary to acute influenza A infection and superimposed right sided community-acquired pneumonia. Chest x-ray on this admission shows a right middle lobe infiltrate. There is also hyperinflation consistent with COPD. Patient previously negative for influenza A recent ER visit 01/05/2024. She was discharged on Z-pack and prednisone burst taper. Nausea, vomiting, diarrhea/suspected acute gastroenteritis secondary to above. Abdominal and pelvis CT with contrast shows postsurgical changes to the stomach suspect gastric bypass, technically suboptimal evaluation of bowel. No obvious bowel obstruction. Possible gastritis of the bypassed distal stomach. General surgery consulted to evaluate patient. Elevated troponins, likely related to supply/demand mismatch Microcytic hypochromic anemia Recent hospitalization for pneumonia at outside facility, reportedly left AGAINST MEDICAL ADVICE Possible right lower lobe pulmonary nodule, requires outpatient follow-up Chronic obstructive pulmonary disease Current ongoing tobacco dependence History of gastric bypass History of polysubstance abuse History of alcoholism Plan: Patient's medications, labs, chest x-ray reviewed Continue supplemental oxygen, wean as tolerated to maintain oxygen saturation of 92% or greater Continue combination of azithromycin and ceftriaxone Blood and sputum cultures pending Procalcitonin level pending Add Tamiflu 5-day course twice daily As needed Tylenol for fever Add combination of bronchodilators, Symbicort inhaler, and IV Solu-Medrol Protonix twice daily for GI prophylaxis Zofran already added as antiemetic Check fecal occult General surgery asked to evaluate patient. We will continue to follow I have personally seen and examined the patient, performed the documentation and the assessment and plan as written. Number of minutes spent on the visit:20 Time with Patient: Greater than 30
[2024-01-12] MEDS: IPRATROPIUM-ALBUTEROL 3 ML NEB INHALATION SCH (06:30)
[2024-01-12] MEDS: SYMBICORT 160-4.5 MCG INHALER INHALATION SCH (06:31)
[2024-01-12] MEDS: OSELTAMIVIR 75 MG CAP PO SCH (06:42)
[2024-01-12] MEDS: MAGNESIUM HYDROXIDE 2,400 MG/30 ML CUP PO PRN (06:43)
[2024-01-12] MEDS ORDERED: DOCUSATE 100 MG CAP PO PRN (06:47)
[2024-01-12] MEDS ORDERED: guaiFENesin SYRUP 100MG/5ML 200 MG/10 ML CUP PO PRN (06:47)
[2024-01-12] MEDS: THIAMINE 100 MG TAB PO SCH (10:12)
[2024-01-12] MEDS: ASPIRIN 81 MG PO SCH (10:12)
[2024-01-12] MEDS: ATORVASTATIN 40 MG TAB PO SCH (10:12)
[2024-01-12] MEDS: methylPREDNISolone SOD SUCCI 40 MG/ML 1 ML VIAL IV SCH (10:12)
[2024-01-12] MEDS: MULTIVITAMINS, THERA 1 EACH TAB PO SCH (10:12)
[2024-01-12] MEDS: LOSARTAN 50 MG TAB PO SCH (10:12)
[2024-01-12] MEDS: AZITHROMYCIN 500 MG TAB PO SCH (10:12)
[2024-01-12] MEDS: PANTOPRAZOLE 40 MG/10 ML VIAL IVP SCH (10:13)
--- NOTE | 2024-01-12 10:45 | P.CNPUL ---
History of Present Illness Consult date: 01/12/24 Reason for consult: dyspnea, COPD History of present illness: This is a pleasant 63-year-old female patient was coming into the hospital because of increased dyspnea cough chest congestion chest tightness and wheezing. The patient is known to have COPD and she is also a chronic smoker. She also has previous history of polysubstance abuse and alcoholism. The patient was recently hospitalized at [facility] out in [facility] and she was having increased shortness of breath and she was given diagnosis of pneumonia. She ended up leaving [place]. We are not sure if the patient was given any form of antibiotics at time of discharge. She was recently evaluated in our emergency department on 01/05/2024 and a chest x-ray at that time showed COPD and interstitial prominence and signs of chronic bronchitis. She was sent home on a course of Z-Osorio and a prednisone burst taper. She was at [facility] and she was having worsening shortness of breath and she ended up coming into the hospital for further workup. At this point in time, the patient is on 3 L of oxygen by nasal cannula with a pulse ox of 96%. I reviewed the chest x-ray and it is showing some cardiomegaly. Nipple shadow on the right. Some increased interstitial markings bilaterally. No airspace disease or consolidation. The patient was also complaining of some abdominal pain. She was given a CAT scan of the abdomen that showed no acute intra-abdominal abnormalities. The patient has undergone previous gastric bypass surgery. The current body mass index is 19.1. The lung bases were essentially clear based on the CAT scan of the abdomen and pelvis that was done in the emergency department. The white cycle 11.9 with a hemoglobin of 7.7 and a platelet count of 417. She tested positive for influenza A. BUN was at 26 with a creatinine of 0.8 and sodium levels at 138. Troponins are 0.07 and 0.08 respectively x 2. Her EKG showed normal sinus rhythm. Old Q waves over the anteroseptal leads. No ST segment elevations or depression. She denies having any chest pain. The patient is currently hospitalized. She is on Tamiflu. She was also given empiric antibiotic coverage with Zithromax. She is on DuoNeb nebulized treatments [id number] and Symbicort on maintenance and she is also on IV Solu-Medrol 40 mg every 12 hours. Note that her Tmax was 102.4 at time of admission. Review of Systems CONSTITUTIONAL: Denies any recent significant weight loss or weight gain. EYES: Denies change in vision. EARS, NOSE, MOUTH, THROAT: Denies headaches, denies sore throat. CARDIOVASCULAR: Denies chest pain, palpitations or syncopal episodes. RESPIRATORY: See HPI. GASTROINTESTINAL: See HPI GENITOURINARY: Denies hematuria, denies infections. Abdominal pain, no nausea or emesis. MUSKULOSKELETAL: Denies pain, denies swelling. INTEGUMENTARY: Denies rash, denies eczema. NEUROLOGICAL: Denies recent memory loss, no recent seizure activity. PSYCHIATRIC: Denies anxiety, denies depression. HEMATOLOGIC/LYMPHATIC: Denies anemia, denies enlarged lymph node Past Medical History Past Medical History: COPD, Hypertension History of Any Multi-Drug Resistant Organisms: None Reported Past Surgical History: No Surgical Hx Reported Past Psychological History: No Psychological Hx Reported Smoking Status: Current every day smoker Past Alcohol Use History: Abuse Medications and Allergies Home Medications Medication Instructions Recorded Confirmed Type Acetaminophen Tab [Tylenol] 650 mg PO Q4H PRN 01/05/24 01/11/24 History Calcium/Magnesium/Zinc/Vitamin D 1 tab PO DAILY PRN 01/05/24 01/11/24 History Chlorpheniramine Maleate 4 mg PO Q4H PRN 01/05/24 01/11/24 History [Chlor-Trimeton] Docusate [Colace] 100 mg PO BID PRN 01/05/24 01/11/24 History Ibuprofen [Motrin Ib] 600 mg PO Q6H PRN 01/05/24 01/11/24 History Loperamide HCl [Imodium A-D] 4 mg PO BID PRN 01/05/24 01/11/24 History Mag Hydrox/Aluminum Hyd/Simeth 30 ml PO Q4H PRN 01/05/24 01/11/24 History [Mylanta Maximum Strength Liq] Magnesium Hydroxide [Milk of 2,400 mg PO BID PRN 01/05/24 01/11/24 History Magnesia] Multivitamins, Thera [Multivitamin 1 tab PO DAILY 01/05/24 01/11/24 History (formulary)] Thiamine [Vitamin B-1] 100 mg PO DAILY 01/05/24 01/11/24 History guaiFENesin [guaiFENesin Oral 200 mg PO Q4H PRN 01/05/24 01/11/24 History Solution] ondansetron HCL [Zofran] 8 mg PO Q6H PRN 01/05/24 01/11/24 History Albuterol Nebulized [Ventolin 2.5 mg INHALATION RT-Q4H PRN 01/11/24 01/11/24 History Nebulized] Azithromycin [Zithromax Z Pack] See Taper PO DIRECTED 01/11/24 01/11/24 History Allergies Allergy/AdvReac Type Severity Reaction Status Date / Time No Known Allergies Allergy Verified 01/11/24 21:44 Physical Exam Vitals: Vital Signs Temp Pulse Resp BP Pulse Ox 01/12/24 08:57 96 01/12/24 07:25 83 168/83 100 01/12/24 06:46 94 01/12/24 06:40 89 19 168/83 98 01/12/24 06:33 100 01/12/24 03:53 78 24 130/91 99 01/12/24 01:35 98.1 F 01/12/24 00:32 99 01/12/24 00:25 100.1 F H 01/12/24 00:21 88 01/11/24 23:00 87 24 158/80 93 L 01/11/24 22:30 89 27 H 161/88 93 L 01/11/24 22:00 89 26 H 176/86 95 01/11/24 21:30 93 25 H 158/80 93 L 01/11/24 21:08 97 24 158/80 93 L 01/11/24 21:00 89 22 144/70 98 01/11/24 20:30 95 32 H 161/76 91 L 01/11/24 20:05 102.4 F H 93 20 158/82 92 L Intake and Output 01/11/24 01/12/24 01/12/24 22:59 06:59 14:59 Other: Weight 48.988 kg GENERAL EXAM: Alert, 63-year-old white female, disheveled, hypertalkative and aggressive with interview, occasionally grabs her abdomen and apparent discomfort. The patient is currently on 3 days of oxygen by nasal cannula. No use of accessory muscles of breathing and breathing is comfortable at this point in time. HEAD: Normocephalic and atraumatic EYES: Normal reaction of pupils, equal size. NOSE: Clear with pink turbinates. THROAT: No erythema or exudates. NECK: No masses, no JVD. CHEST: No chest wall deformity. LUNGS: Equal air entry with scattered wheezing and rales heard at the right base. CVS: S1 and S2 normal with no audible murmur, regular rhythm. No extra heart sounds ABDOMEN: No hepatosplenomegaly, hyperactive bowel sounds, no guarding or rigidity. SPINE: No scoliosis or deformity SKIN: No rashes CENTRAL NERVOUS SYSTEM: No focal deficits, tone is normal in all 4 extremities. EXTREMITIES: There is no peripheral edema, clubbing, or cyanosis. Peripheral pulses are intact. Results - Laboratory Findings CBC and BMP: 01/11/24 20:45 01/11/24 20:45 PT/INR, D-dimer PT 10.3 sec (10.0-12.5) 01/11/24 20:45 INR 0.9 (<1.2) 01/11/24 20:45 Abnormal lab findings: Abnormal Labs 01/11/24 01/11/24 01/11/24 20:45 20:45 20:45 WBC 11.9 H Hgb 7.7 L Hct 26.6 L MCV 67.4 L MCH 19.4 L MCHC 28.8 L RDW 19.5 H Neutrophils # 10.8 H Lymphocytes # 0.5 L BUN 26 H Calcium 8.0 L Troponin I 0.079 H* Total Protein 6.2 L Albumin 3.4 L Influenza Type A (PCR) 01/11/24 01/12/24 20:45 00:49 WBC Hgb Hct MCV MCH MCHC RDW Neutrophils # Lymphocytes # BUN Calcium Troponin I 0.085 H* Total Protein Albumin Influenza Type A (PCR) Detected A - Diagnostic Findings Chest x-ray: image reviewed Assessment and Plan Plan: Acute COPD exacerbation, secondary to acute influenza A infection and possibility of superimposed bacterial pneumonia is felt to be less likely. Reviewed the chest x-ray and the findings are essentially chronic. Presentation with fever, GI symptoms and worsening shortness of breath is consistent with acute influenza syndrome and COPD exacerbation. CAT scan of the abdomen was essentially negative for any acute intra-abdominal abnormalities Acute influenza syndrome, no previous vaccinations Abdominal pain nausea, vomiting, diarrhea/suspected acute gastroenteritis secondary to above. Abdominal and pelvis CT with contrast shows postsurgical changes to the stomach gastric bypass, technically suboptimal evaluation of bowel. No obvious bowel obstruction. Possible gastritis of the bypassed distal stomach. General surgery consulted to evaluate patient. This could be also manifestations of influenza syndrome. Elevated troponins, likely related to supply/demand mismatch Microcytic hypochromic anemia, rule out underlying iron deficiency Recent hospitalization for pneumonia at outside facility, reportedly left AGAINST MEDICAL ADVICE Possible right lower lobe pulmonary nodule, likely of breast shadow Chronic obstructive pulmonary disease Current ongoing tobacco dependence History of gastric bypass History of polysubstance abuse History of alcoholism Plan: Continue supplemental oxygen, wean as tolerated to maintain oxygen saturation of 92% or greater, currently on 3 days of oxygen by nasal cannula Tamiflu DuoNeb nebulized treatments [id number] IV Solu-Medrol 40 mg every 12 hours Check stool for C. difficile should the patient develop any diarrhea Protonix twice daily for GI prophylaxis Zofran already added as antiemetic General surgery regarding abdominal pain and post gastric bypass surgery Antibiotic coverage essentially empiric at this point in time Check iron studies We will continue to follow
--- NOTE | 2024-01-12 11:56 | P.HPIM ---
History of Present Illness H&P Date: 01/12/24 This is a 63-year-old female with medical history significant for COPD, hypertension, pack per day smoker. History of chronic alcohol use, and polysubstance use. Patient states that she has been sober for 17 years. Patient comes to the hospital with complaints of shortness of breath and cough ongoing for the last 2 days. No fever noted. Patient was recently admitted to [facility] for pneumonia states that she was discharged home with oxygen but her tanks were empty. She did leave AGAINST MEDICAL ADVICE from [facility]. She is also reporting crampy sharp abdominal discomfort states that her last bowel movement was 5 or 6 days ago. She is not having any chest discomfort. No nausea vomiting. Her chest x-ray shows a partially consolidative opacity in the right lower lobe consistent with an acute pneumonia. Abdominal pelvis CT shows nonobstructive calculus a 1.1 cm cyst on the left kidney there is no nephrolithiasis. Patient has post gastric bypass, consider gastritis of the bypass to distal stomach. Has elevated white count of 11.9, hemoglobin 7.7, platelet count of 417, sodium 138, potassium 4.0, BUN of 26, creatinine of 0.80. Noted that patient was in the this ER 1 week prior for similar symptoms and discharged with oral prednisone and azithromycin. Admitted to the hospital under medicine with pulmonary consultation. Started on oral azithromycin and IV solumedrol. General surgery was consulted for the constipation. REVIEW OF SYSTEMS: CONSTITUTIONAL: No fever, no malaise, no fatigue. HEENT: No recent visual problems or hearing problems. Denied any sore throat. CARDIOVASCULAR: No chest pain, orthopnea, PND, no palpitations, no syncope. PULMONARY: reports shortness of breath and cough, no hemoptysis. GASTROINTESTINAL: Reports n/v/d and abdominal pain NEUROLOGICAL: No headaches, no weakness, no numbness. HEMATOLOGICAL: Denies any bleeding or petechiae. GENITOURINARY: Denies any burning micturition, frequency, or urgency. MUSCULOSKELETAL/RHEUMATOLOGICAL: Denies any joint pain, swelling, or any muscle pain. ENDOCRINE: Denies any polyuria or polydipsia. The rest of the 14-point review of systems is negative. PHYSICAL EXAMINATION: GENERAL: The patient is alert and oriented x3, not in any acute distress. Well developed, well nourished. HEENT: Pupils are round and equally reacting to light. EOMI. No scleral icterus. No conjunctival pallor. Normocephalic, atraumatic. No pharyngeal erythema. No thyromegaly. CARDIOVASCULAR: Scattered wheezing. PULMONARY: Chest is clear to auscultation, no wheezing or crackles. ABDOMEN: Soft, tender, nondistended, normoactive bowel sounds. No palpable organomegaly. MUSCULOSKELETAL: No joint swelling or deformity. EXTREMITIES: No cyanosis, clubbing, or pedal edema. NEUROLOGICAL: Gross neurological examination did not reveal any focal deficits. SKIN: No rashes. Assessment and Plan -Acute influenza with pneumonia -Hx of COPD with acute exacerbation failed outpatient therapy. -Acute hypoxic respiratory failure secondary to above -Troponin elevation rule out ACS, cardiology consultation although this is likely a type 2 IA due to supply demand mismatch -Nausea vomiting, diarrhea likely due to acute gastritis, general surgery recommending small bowel through patient has refused. Did have 2 BMs overnight. Symptoms could also be from the viral illness -Chronic nicotine use 1 pack per day smoker -Hx of gastric bypass -Hx of alcoholism and polysubstance abuse currently at [facility] which patients states is for a "refresh." GI prophylaxis DVT prophylaxis Patient to continue on IV solumedrol, Oral azithromycin and updrafts. Started on tamiflu. Pulmonary following. General Surgery on consultation. Continue supportive care Repeat labs in the AM Patient may need home oxygen on discharge. The impression and plan of care has been dictated by Jessi Sawyer Nurse Practitioner as directed. Dr. Seth MD I have performed a history and physical examination and medical decision making of this patient, discussed the same with the dictator, and agree with the dictators assessment and plan as written, documented as a scribe. Based on total visit time, I have performed more than 50% of this visit. Past Medical History Past Medical History: COPD, Hypertension History of Any Multi-Drug Resistant Organisms: None Reported Past Surgical History: No Surgical Hx Reported Past Psychological History: No Psychological Hx Reported Smoking Status: Current every day smoker Past Alcohol Use History: Abuse Medications and Allergies Home Medications Medication Instructions Recorded Confirmed Type Acetaminophen Tab [Tylenol] 650 mg PO Q4H PRN 01/05/24 01/11/24 History Calcium/Magnesium/Zinc/Vitamin D 1 tab PO DAILY PRN 01/05/24 01/11/24 History Chlorpheniramine Maleate 4 mg PO Q4H PRN 01/05/24 01/11/24 History [Chlor-Trimeton] Docusate [Colace] 100 mg PO BID PRN 01/05/24 01/11/24 History Ibuprofen [Motrin Ib] 600 mg PO Q6H PRN 01/05/24 01/11/24 History Loperamide HCl [Imodium A-D] 4 mg PO BID PRN 01/05/24 01/11/24 History Mag Hydrox/Aluminum Hyd/Simeth 30 ml PO Q4H PRN 01/05/24 01/11/24 History [Mylanta Maximum Strength Liq] Magnesium Hydroxide [Milk of 2,400 mg PO BID PRN 01/05/24 01/11/24 History Magnesia] Multivitamins, Thera [Multivitamin 1 tab PO DAILY 01/05/24 01/11/24 History (formulary)] Thiamine [Vitamin B-1] 100 mg PO DAILY 01/05/24 01/11/24 History guaiFENesin [guaiFENesin Oral 200 mg PO Q4H PRN 01/05/24 01/11/24 History Solution] ondansetron HCL [Zofran] 8 mg PO Q6H PRN 01/05/24 01/11/24 History Albuterol Nebulized [Ventolin 2.5 mg INHALATION RT-Q4H PRN 01/11/24 01/11/24 History Nebulized] Azithromycin [Zithromax Z Pack] See Taper PO DIRECTED 01/11/24 01/11/24 History Allergies Allergy/AdvReac Type Severity Reaction Status Date / Time No Known Allergies Allergy Verified 01/11/24 21:44 Physical Exam Vitals: Vital Signs Temp Pulse Resp BP Pulse Ox 01/12/24 07:25 83 168/83 100 01/12/24 06:46 94 01/12/24 06:40 89 19 168/83 98 01/12/24 06:33 100 01/12/24 03:53 78 24 130/91 99 01/12/24 01:35 98.1 F 01/12/24 00:32 99 01/12/24 00:25 100.1 F H 01/12/24 00:21 88 01/11/24 23:00 87 24 158/80 93 L 01/11/24 22:30 89 27 H 161/88 93 L 01/11/24 22:00 89 26 H 176/86 95 01/11/24 21:30 93 25 H 158/80 93 L 01/11/24 21:08 97 24 158/80 93 L 01/11/24 21:00 89 22 144/70 98 01/11/24 20:30 95 32 H 161/76 91 L 01/11/24 20:05 102.4 F H 93 20 158/82 92 L Intake and Output 01/11/24 01/12/24 01/12/24 22:59 06:59 14:59 Other: Weight 48.988 kg Results CBC & Chem 7: 01/11/24 20:45 01/11/24 20:45 Labs: Abnormal Lab Results - Last 24 Hours (Table) 01/11/24 01/11/24 01/11/24 Range/Units 20:45 20:45 20:45 WBC 11.9 H (3.8-10.6) k/uL Hgb 7.7 L (11.4-16.0) gm/dL Hct 26.6 L (34.0-46.0) % MCV 67.4 L (80.0-100.0) fL MCH 19.4 L (25.0-35.0) pg MCHC 28.8 L (31.0-37.0) g/dL RDW 19.5 H (11.5-15.5) % Neutrophils # 10.8 H (1.3-7.7) k/uL Lymphocytes # 0.5 L (1.0-4.8) k/uL BUN 26 H (7-17) mg/dL Calcium 8.0 L (8.4-10.2) mg/dL Troponin I 0.079 H* (0.000-0.034) ng/mL Total Protein 6.2 L (6.3-8.2) g/dL Albumin 3.4 L (3.5-5.0) g/dL Influenza Type A (PCR) (Not Detectd) 01/11/24 01/12/24 Range/Units 20:45 00:49 WBC (3.8-10.6) k/uL Hgb (11.4-16.0) gm/dL Hct (34.0-46.0) % MCV (80.0-100.0) fL MCH (25.0-35.0) pg MCHC (31.0-37.0) g/dL RDW (11.5-15.5) % Neutrophils # (1.3-7.7) k/uL Lymphocytes # (1.0-4.8) k/uL BUN (7-17) mg/dL Calcium (8.4-10.2) mg/dL Troponin I 0.085 H* (0.000-0.034) ng/mL Total Protein (6.3-8.2) g/dL Albumin (3.5-5.0) g/dL Influenza Type A (PCR) Detected A (Not Detectd) Assessment and Plan Time with Patient: Less than 30
--- NOTE | 2024-01-12 12:07 | P.CRDCN ---
History of Present Illness Consult date: 01/12/24 Reason for Consult (text): NSTEMI History of present illness: History of present illness: This is a 63-year-old female with past medical history of COPD, tobacco use and dependence, recent diagnosis of pneumonia, hypertension, morbid obesity status post gastric bypass. We have been asked to evaluate the patient for non-ST elevated myocardial infarction. Patient states that she presented to the hospital due to shortness of breath. She was recently at [facility] was treated for pneumonia and signed out AMA. She now comes to [facility] from [place]. Patient denies having any chest pain. EKG sinus rhythm with nonspecific ST-T wave changes with suspected hypertensive heart disease and old septal NM Chest x-ray: Acute cardiopulmonary disease with right lung base. Findings suggestive of developing pneumonia. WBC 11.9, hemoglobin 7.7, platelet count 417. INR 0.9. Electrolytes are normal. BUN 26 and creatinine 0.8. Calcium 8, lactic acid 1.5. Troponin 0.079, 0.085, procalcitonin 0.09. Influenza A detected. Influenza B, RSV, COVID-19 not detected. Home cardiac medications: None Review Of Systems: At the time of my exam: CONSTITUTIONAL: Denies fever or chills. HEENT: Denies blurred vision, vision changes, or eye pain. Denies hemoptysis CARDIOVASCULAR: Denies chest pain. Denies orthopnea. Denies PND. Denies palpitations RESPIRATORY: Denies shortness of breath. GASTROINTESTINAL: Denies abdominal pain. Denies nausea or vomiting. HEMATOLOGIC: Denies bleeding disorders. GENITOURINARY: Denies any blood in urine. SKIN: Denies pruitis. Denies rash. Physical examination: Gen: This is a thin appearing 63-year-old female in no acute respiratory distress. VS: reviewed HEENT: Head is atraumatic, normocephalic. Pupils equal, round. Sclerae is anicteric. NECK: Supple. No JVD. LUNGS: Bilateral wheezing and congestion. No intercostal retractions. HEART: Regular rate and rhythm. No murmur. ABDOMEN: Soft No tenderness. EXTREMITIES: No pedal edema. No calf tenderness. NEUROLOGICAL: Patient is awake, alert and oriented x3. Assessment: COPD exacerbation Influenza A Possible pneumonia Non-ST elevated myocardial infarction, type II secondary to COPD exacerbation/influenza Hypertension Tobacco use and dependence History of gastric bypass surgery History of alcohol abuse and polysubstance abuse GI symptoms with nausea vomiting diarrhea Plan: Resume patient's home cardiac medications Patient noted to have abnormal EKG and recommended cardiac catheterization or stress test prior to discharge once respiratory status is improved. Start patient on aspirin 81 mg daily, atorvastatin 40 mg daily Hold on beta-zaid due to COPD Obtain 2-D echocardiogram and Doppler study to assess cardiac structure and function Further recommendations to follow based upon clinical course Thank you kindly for this consultation. Nurse practitioner note has been reviewed, I agree with documented findings and plan of care. Patient was seen and examined. Past Medical History Past Medical History: COPD, Hypertension History of Any Multi-Drug Resistant Organisms: None Reported Past Surgical History: No Surgical Hx Reported Past Psychological History: No Psychological Hx Reported Smoking Status: Current every day smoker Past Alcohol Use History: Abuse Medications and Allergies Home Medications Medication Instructions Recorded Confirmed Type Acetaminophen Tab [Tylenol] 650 mg PO Q4H PRN 01/05/24 01/11/24 History Calcium/Magnesium/Zinc/Vitamin D 1 tab PO DAILY PRN 01/05/24 01/11/24 History Chlorpheniramine Maleate 4 mg PO Q4H PRN 01/05/24 01/11/24 History [Chlor-Trimeton] Docusate [Colace] 100 mg PO BID PRN 01/05/24 01/11/24 History Ibuprofen [Motrin Ib] 600 mg PO Q6H PRN 01/05/24 01/11/24 History Loperamide HCl [Imodium A-D] 4 mg PO BID PRN 01/05/24 01/11/24 History Mag Hydrox/Aluminum Hyd/Simeth 30 ml PO Q4H PRN 01/05/24 01/11/24 History [Mylanta Maximum Strength Liq] Magnesium Hydroxide [Milk of 2,400 mg PO BID PRN 01/05/24 01/11/24 History Magnesia] Multivitamins, Thera [Multivitamin 1 tab PO DAILY 01/05/24 01/11/24 History (formulary)] Thiamine [Vitamin B-1] 100 mg PO DAILY 01/05/24 01/11/24 History guaiFENesin [guaiFENesin Oral 200 mg PO Q4H PRN 01/05/24 01/11/24 History Solution] ondansetron HCL [Zofran] 8 mg PO Q6H PRN 01/05/24 01/11/24 History Albuterol Nebulized [Ventolin 2.5 mg INHALATION RT-Q4H PRN 01/11/24 01/11/24 History Nebulized] Azithromycin [Zithromax Z Pack] See Taper PO DIRECTED 01/11/24 01/11/24 History Allergies Allergy/AdvReac Type Severity Reaction Status Date / Time No Known Allergies Allergy Verified 01/11/24 21:44 Physical Exam Vitals: Vital Signs Temp Pulse Pulse Resp BP Pulse Ox 01/12/24 10:30 85 22 98 01/12/24 08:57 96 01/12/24 07:25 83 168/83 100 01/12/24 06:46 94 01/12/24 06:40 89 19 168/83 98 01/12/24 06:33 100 01/12/24 03:53 78 24 130/91 99 01/12/24 01:35 98.1 F 01/12/24 00:32 99 01/12/24 00:25 100.1 F H 01/12/24 00:21 88 01/11/24 23:00 87 24 158/80 93 L 01/11/24 22:30 89 27 H 161/88 93 L 01/11/24 22:00 89 26 H 176/86 95 01/11/24 21:30 93 25 H 158/80 93 L 01/11/24 21:08 97 24 158/80 93 L 01/11/24 21:00 89 22 144/70 98 01/11/24 20:30 95 32 H 161/76 91 L 01/11/24 20:05 102.4 F H 93 20 158/82 92 L Intake and Output 01/11/24 01/12/24 01/12/24 22:59 06:59 14:59 Other: Weight 48.988 kg Results 01/11/24 20:45 01/11/24 20:45 Cardiac Enzymes 01/11/24 01/11/24 01/12/24 Range/Units 20:45 20:45 00:49 AST 34 (14-36) U/L Troponin I 0.079 H* 0.085 H* (0.000-0.034) ng/mL Coagulation 01/11/24 Range/Units 20:45 PT 10.3 (10.0-12.5) sec APTT 24.0 (22.0-30.0) sec CBC 01/11/24 Range/Units 20:45 WBC 11.9 H (3.8-10.6) k/uL RBC 3.95 (3.80-5.40) m/uL Hgb 7.7 L (11.4-16.0) gm/dL Hct 26.6 L (34.0-46.0) % Plt Count 417 (150-450) k/uL Comprehensive Metabolic Panel 01/11/24 Range/Units 20:45 Sodium 138 (137-145) mmol/L Potassium 4.0 (3.5-5.1) mmol/L Chloride 101 (98-107) mmol/L Carbon Dioxide 30 (22-30) mmol/L BUN 26 H (7-17) mg/dL Creatinine 0.80 (0.52-1.04) mg/dL Glucose 88 (74-99) mg/dL Calcium 8.0 L (8.4-10.2) mg/dL AST 34 (14-36) U/L ALT 22 (4-34) U/L Alkaline Phosphatase 80 (38-126) U/L Total Protein 6.2 L (6.3-8.2) g/dL Albumin 3.4 L (3.5-5.0) g/dL Current Medications Generic Name Dose Route Start Last Admin Trade Name Freq PRN Reason Stop Dose Admin Acetaminophen 650 mg 01/12/24 06:47 Acetaminophen Tab 325 Mg Tab PO Q4H PRN Fever and/ or Pain Albuterol Sulfate 2.5 mg 01/11/24 23:36 01/12/24 00:25 Albuterol Nebulized 2.5 Mg/3 Ml INHALATION 2.5 mg RT-Q4H PRN Administration Shortness Of Breath Or Wheezing Albuterol/Ipratropium 3 ml 01/12/24 08:00 01/12/24 06:30 Ipratropium-Albuterol 3 Ml Neb INHALATION 3 ml RT-QID SVETLANA Administration Aspirin 81 mg 01/12/24 09:00 01/12/24 10:12 Aspirin 81 Mg PO 81 mg DAILY SVETLANA Administration Atorvastatin Calcium 40 mg 01/12/24 09:00 01/12/24 10:12 Atorvastatin 40 Mg Tab PO 40 mg DAILY SVETLANA Administration Azithromycin 500 mg 01/12/24 09:00 01/12/24 10:12 Azithromycin 500 Mg Tab PO 01/13/24 09:01 500 mg DAILY SVETLANA Administration Protocol Budesonide/Formoterol Fumarate 2 puff 01/12/24 08:00 01/12/24 06:31 Symbicort 160-4.5 Mcg Inhaler INHALATION 2 puff RT-BID SVETLANA Administration Docusate Sodium 100 mg 01/12/24 06:47 Docusate 100 Mg Cap PO BID PRN Constipation Guaifenesin 200 mg 01/12/24 06:47 Guaifenesin Syrup 100mg/5ml 200 Mg/10 Ml Cup PO Q4H PRN Cough Ceftriaxone Sodium 2 gm/ 50 mls @ 100 mls/hr 01/12/24 21:00 Sodium Chloride IVPB 01/15/24 21:29 Q24H [facility] Protocol Losartan Potassium 50 mg 01/12/24 09:00 01/12/24 10:12 Losartan 50 Mg Tab PO 50 mg DAILY SVETLANA Administration Magnesium Hydroxide 2,400 mg 01/11/24 23:39 01/12/24 06:43 Magnesium Hydroxide 2,400 Mg/30 Ml Cup PO 2,400 mg BID PRN Administration Constipation Methylprednisolone Sodium Succinate 40 mg 01/12/24 09:00 01/12/24 10:12 Methylprednisolone Sod Succi 40 Mg/Ml 1 Ml Vial IV 40 mg Q12HR SVETLANA Administration Miscellaneous Information 1 each 01/11/24 23:36 Pneumonia Protocol Utilized 1 Each Misc PO ONCE PRN Per Protocol Multivitamins 1 each 01/12/24 09:00 01/12/24 10:12 Multivitamins, Thera 1 Each Tab PO 1 each DAILY SVETLANA Administration Ondansetron HCl 8 mg 01/11/24 23:39 Ondansetron Odt 4 Mg Tab PO Q6H PRN Nausea And Vomiting Oseltamivir Phosphate 30 mg 01/12/24 21:00 Oseltamivir 60 Mg/10 Ml Oral Syringe PO 01/16/24 21:01 Q12HR SVETLANA Protocol Pantoprazole Sodium 40 mg 01/12/24 09:00 01/12/24 10:13 Pantoprazole 40 Mg/10 Ml Vial IVP 40 mg BID SVETLANA Administration Thiamine HCl 100 mg 01/12/24 09:00 01/12/24 10:12 Thiamine 100 Mg Tab PO 100 mg DAILY SVETLANA Administration Intake and Output 01/11/24 01/12/24 01/12/24 22:59 06:59 14:59 Other: Weight 48.988 kg 01/11/24 20:45 01/11/24 20:45
--- NOTE | 2024-01-12 12:28 | XR ---
EXAMINATION TYPE: XR chest 1V portable DATE OF EXAM: 01/12/2024 Comparison: 01/11/2024 Clinical History: 63-year-old female pneumonia Findings: Heart mildly enlarged. Hyperinflation. Mild interstitial opacity persists. Nodularity at the right ba se suggestive of nipple shadow. Otherwise, no consolidation or pleural effusion. Impression: Similar mild cardiomegaly, COPD, and interstitial density. Consider mild pulmonary vascular congestio n versus bronchitis or atypical pneumonia.
[2024-01-12] MEDS: NICOTINE 21MG/24HR PATCH TRANSDERM SCH (15:26)
--- NOTE | 2024-01-12 15:52 | P.GSCN ---
History of Present Illness Consult date: 01/12/24 History of present illness: CHIEF COMPLAINT: Shortness of breath Reason for consult abdominal pain HISTORY OF PRESENT ILLNESS: This is a 63-year-old female who presented to the ER with shortness of breath and cough. She was at [facility] with history of cocaine abuse. Patient will found to be influenza A positive and having a COPD exacerbation. Troponins were elevated evaluated by cardiology and evidence of a non-ST elevated [place]. Surgical service consulted in regards to patient's abdominal pain. Patient reports that she had abdominal pain 2 weeks ago. She reports that it is sharp pains. Patient reports that she has been constipated over the last few days. She did receive an enema and did have a bowel movement last night. She did have nausea as well as an episode of vomiting yesterday. CT scan of the abdomen pelvis showed no bowel obstruction. Patient was febrile and mildly elevated white count. Past abdominal surgical history does include a gastric bypass 20 years ago, appendectomy, and laparoscopy. PAST MEDICAL HISTORY: See below PAST SURGICAL HISTORY: See below MEDICATIONS: See below ALLERGIES: See below SOCIAL HISTORY: No illicit drug use. REVIEW OF SYSTEMS: CONSTITUTIONAL: Denies fever or chills. HEENT: Denies blurred vision, vision changes, or eye pain. Denies hemoptysis CARDIOVASCULAR: Denies chest pain or pressure. RESPIRATORY: No shortness of breath. GASTROINTESTINAL: See HPI for pertinent findings HEMATOLOGIC: Denies bleeding disorders. GENITOURINARY: Denies any blood in urine or increased urinary frequency. SKIN: Denies pruitis. Denies rash. PHYSICAL EXAM: VITAL SIGNS: Reviewed GENERAL: Well-developed in no acute distress. HEENT: No sclera icterus. Extraocular movements grossly intact. Moist buccal mucosa. Head is atraumatic, normocephalic. No nasal drainage. ABDOMEN: Soft. Nondistended. nontender NEUROLOGIC: Alert and oriented. Cranial nerves II through XII grossly intact. Speech is rushed and thoughts are sporadic LABORATORY DATA: WBC 11.9 HGb 7.7 Plt 417 Na 138 K 4.0 cr 0.8 Troponins elevated Influenza A detected IMAGING: CT scan abdomen pelvis postsurgical change to the stomach suspected gastric bypass. Suboptimal evaluation of the bowel. No bowel obstruction. Consider gastritis of the bypassed distal stomach ASSESSMENT: 1. Abdominal pain 2. Constipation 3. Influenza A positive 4. COPD exacerbation 5. Elevated troponins, non-ST elevated KY. Evaluated by cardiology PLAN: -Upper GI final report pending. CT scan abdomen pelvis with contrast ordered for evaluation of obstruction -Further recommendations forthcoming per surgeon -Keep patient n.p.o. until evaluated by surgeon Physician Clip And Hanger Attacher note has been reviewed by physician. Signing provider agrees with the documented findings, assessment, and plan of care. I have personally seen and examined the patient, reviewed the HEEL SEAT LASTER /PAs history, exam and MDM and agree with the assessment and plan as written. Based on total visit time, I have performed more than 50% of the visit. As above: We were consulted based on abdominal pain complaints. Patient states she has been constipated ever since her recent admission in [place]. Patient did have good bowel function yesterday and again this afternoon. Her CAT scan yesterday showed what appeared to represent small bowel intussusception in the left upper quadrant. Patient with history of previous gastric bypass for weight loss. Patient has a fairly large proximal gastric pouch. She went for upper GI and the patient did not tolerate that study and it was canceled. Patient then had a follow-up CAT scan showing contrast has reached down to the rectum. There is some unopacified bowel loops in the left mid abdomen. Films were reviewed with radiology and this is thought to likely represent small bowel as there appears to be a anastomosis there. That is likely the jejunojejunostomy. There is no significant small bowel dilation. The patient's colon is somewhat distended. Patient states she had multiple loose stools after the upper GI contrast was utilized. It was Gastrografin. She feels better now. Patient is somewhat hungry. There is a large amount of food at the bedside although she states she is not eating at but did admit to having about half of a solid dinner tray. Patient states her main complaints is cough. Begin clear liquid diet. Will follow closely. Past Medical History Past Medical History: COPD, Hypertension History of Any Multi-Drug Resistant Organisms: None Reported Past Surgical History: No Surgical Hx Reported Past Psychological History: No Psychological Hx Reported Smoking Status: Current every day smoker Past Alcohol Use History: Abuse - Past Family History Father Family Medical History: Congestive Heart Failure (CHF) Additional Family Medical History / Comment(s): Mother Family Medical History: Cancer Additional Family Medical History / Comment(s): lung. Sister(s) Family Medical History: COPD Additional Family Medical History / Comment(s): passes away Medications and Allergies Home Medications Medication Instructions Recorded Confirmed Type Acetaminophen Tab [Tylenol] 650 mg PO Q4H PRN 01/05/24 01/11/24 History Calcium/Magnesium/Zinc/Vitamin D 1 tab PO DAILY PRN 01/05/24 01/11/24 History Chlorpheniramine Maleate 4 mg PO Q4H PRN 01/05/24 01/11/24 History [Chlor-Trimeton] Docusate [Colace] 100 mg PO BID PRN 01/05/24 01/11/24 History Ibuprofen [Motrin Ib] 600 mg PO Q6H PRN 01/05/24 01/11/24 History Loperamide HCl [Imodium A-D] 4 mg PO BID PRN 01/05/24 01/11/24 History Mag Hydrox/Aluminum Hyd/Simeth 30 ml PO Q4H PRN 01/05/24 01/11/24 History [Mylanta Maximum Strength Liq] Magnesium Hydroxide [Milk of 2,400 mg PO BID PRN 01/05/24 01/11/24 History Magnesia] Multivitamins, Thera [Multivitamin 1 tab PO DAILY 01/05/24 01/11/24 History (formulary)] Thiamine [Vitamin B-1] 100 mg PO DAILY 01/05/24 01/11/24 History guaiFENesin [guaiFENesin Oral 200 mg PO Q4H PRN 01/05/24 01/11/24 History Solution] ondansetron HCL [Zofran] 8 mg PO Q6H PRN 01/05/24 01/11/24 History Albuterol Nebulized [Ventolin 2.5 mg INHALATION RT-Q4H PRN 01/11/24 01/11/24 History Nebulized] Azithromycin [Zithromax Z Pack] See Taper PO DIRECTED 01/11/24 01/11/24 History Allergies Allergy/AdvReac Type Severity Reaction Status Date / Time No Known Allergies Allergy Verified 01/11/24 21:44 Surgical - Exam Vital Signs Temp Pulse Resp BP Pulse Ox 102.4 F H 93 20 158/82 92 L 01/11/24 20:05 01/11/24 20:05 01/11/24 20:05 01/11/24 20:05 01/11/24 20:05 Results - Labs 01/11/24 20:45 01/11/24 20:45 Abnormal Lab Results - Last 24 Hours (Table) 01/11/24 01/11/24 01/11/24 Range/Units 20:45 20:45 20:45 WBC 11.9 H (3.8-10.6) k/uL Hgb 7.7 L (11.4-16.0) gm/dL Hct 26.6 L (34.0-46.0) % MCV 67.4 L (80.0-100.0) fL MCH 19.4 L (25.0-35.0) pg MCHC 28.8 L (31.0-37.0) g/dL RDW 19.5 H (11.5-15.5) % Neutrophils # 10.8 H (1.3-7.7) k/uL Lymphocytes # 0.5 L (1.0-4.8) k/uL BUN 26 H (7-17) mg/dL Calcium 8.0 L (8.4-10.2) mg/dL Troponin I 0.079 H* (0.000-0.034) ng/mL Total Protein 6.2 L (6.3-8.2) g/dL Albumin 3.4 L (3.5-5.0) g/dL Influenza Type A (PCR) (Not Detectd) 01/11/24 01/12/24 Range/Units 20:45 00:49 WBC (3.8-10.6) k/uL Hgb (11.4-16.0) gm/dL Hct (34.0-46.0) % MCV (80.0-100.0) fL MCH (25.0-35.0) pg MCHC (31.0-37.0) g/dL RDW (11.5-15.5) % Neutrophils # (1.3-7.7) k/uL Lymphocytes # (1.0-4.8) k/uL BUN (7-17) mg/dL Calcium (8.4-10.2) mg/dL Troponin I 0.085 H* (0.000-0.034) ng/mL Total Protein (6.3-8.2) g/dL Albumin (3.5-5.0) g/dL Influenza Type A (PCR) Detected A (Not Detectd) Diabetes panel 01/11/24 Range/Units 20:45 Sodium 138 (137-145) mmol/L Potassium 4.0 (3.5-5.1) mmol/L Chloride 101 (98-107) mmol/L Carbon Dioxide 30 (22-30) mmol/L BUN 26 H (7-17) mg/dL Creatinine 0.80 (0.52-1.04) mg/dL Glucose 88 (74-99) mg/dL Calcium 8.0 L (8.4-10.2) mg/dL AST 34 (14-36) U/L ALT 22 (4-34) U/L Alkaline Phosphatase 80 (38-126) U/L Total Protein 6.2 L (6.3-8.2) g/dL Albumin 3.4 L (3.5-5.0) g/dL Calcium panel 01/11/24 Range/Units 20:45 Calcium 8.0 L (8.4-10.2) mg/dL Albumin 3.4 L (3.5-5.0) g/dL Pituitary panel 01/11/24 Range/Units 20:45 Sodium 138 (137-145) mmol/L Potassium 4.0 (3.5-5.1) mmol/L Chloride 101 (98-107) mmol/L Carbon Dioxide 30 (22-30) mmol/L BUN 26 H (7-17) mg/dL Creatinine 0.80 (0.52-1.04) mg/dL Glucose 88 (74-99) mg/dL Calcium 8.0 L (8.4-10.2) mg/dL Adrenal panel 01/11/24 Range/Units 20:45 Sodium 138 (137-145) mmol/L Potassium 4.0 (3.5-5.1) mmol/L Chloride 101 (98-107) mmol/L Carbon Dioxide 30 (22-30) mmol/L BUN 26 H (7-17) mg/dL Creatinine 0.80 (0.52-1.04) mg/dL Glucose 88 (74-99) mg/dL Calcium 8.0 L (8.4-10.2) mg/dL Total Bilirubin 0.2 (0.2-1.3) mg/dL AST 34 (14-36) U/L ALT 22 (4-34) U/L Alkaline Phosphatase 80 (38-126) U/L Total Protein 6.2 L (6.3-8.2) g/dL Albumin 3.4 L (3.5-5.0) g/dL
[2024-01-12 16:01] LABS: % Iron Saturation 2.99 (12.00-45.00)
--- NOTE | 2024-01-12 18:50 | CT ---
EXAMINATION TYPE: CT abdomen pelvis wo con CT DLP: 337.1 mGycm, Automated exposure control for dose reduction was used. DATE OF EXAM: 01/12/2024 6:09 PM COMPARISON: 01/12/2024 CLINICAL INDICATION:Female, 63 years old with history of obstruction; obstruction. pt had UGI with sm all bowel today. Per Dr. Wilson do scan WO contrast and to scan as is wth the contrast from test done earlier today TECHNIQUE: Axial CT abdomen pelvis wo con;Sagittal and coronal reformats were created on a separate workstation. Contrast used: mL of , (none if empty) Oral contrast used: without Oral Contrast (none if empty) FINDINGS: LOWER CHEST: Moderate to large hiatal hernia. ABDOMEN LIVER: Unremarkable GALLBLADDER AND BILE DUCTS: Unremarkable. PANCREAS: Unremarkable. SPLEEN: Unremarkable. ADRENAL GLANDS: Unremarkable. KIDNEYS AND URETERS: No evidence of hydronephrosis or renal calculus. The ureters are unremarkable. Nonobstructing tiny 1 to 2 mm calculi are seen bilaterally. PELVIS BLADDER: Unremarkable REPRODUCTIVE: Unremarkable. ABDOMEN & PELVIS STOMACH AND BOWEL: Intussusception seen on prior is no suggesting transient intussusception. Oral con trast from today's exam extends down into the rectum. There is redundant colon particularly the cecum and ascending colon. Surgical suture seen in the left abdomen. No evidence of bowel obstruction. No remaining contrast is seen within the stomach. PERITONEUM/RETROPERITONEUM: No evidence of pneumoperitoneum or free fluid. VASCULATURE: No evidence of aortic aneurysm. MUSCULOSKELETAL: No acute osseous abnormalities. Mild disc degeneration changes are present throughou t the thoracolumbar spine. LYMPH NODES: No gross evidence for lymphadenopathy. SOFT TISSUE/ABDOMINAL WALL: Unremarkable IMPRESSION: The prior intussusception seen in left upper quadrant is no longer visualized. Oral contrast from tod ay's upper GI extends to the rectum. No evidence of obstruction.
--- NOTE | 2024-01-12 18:52 | FL ---
EXAMINATION TYPE: FL UGI DATE OF EXAM: 01/12/2024 2:21 PM CLINICAL INDICATION:Female, 63 years old with history of Intussusception; COMPARISON: CT 01/11/2024 TECHNIQUE: The procedure was explained and patient history elicited. All patient questions were ans wered prior to start of procedure. A bad work gatherer radiograph of the abdomen was also reviewed. Multiple flu oroscopic spot images of the esophagus, stomach and duodenum were obtained following ingestion of liq uid barium and EZ-gas crystals. Fluoroscopic time: 1 minute 38 seconds Fluoroscopic images: 0 Radiographs taken: 42 DAP: Not reported [id number] FINDINGS: Contrast enters the stomach and there may be trickle outflow in the left abdomen which was present on a couple of the images later in the exam. The patient was uncomfortable and nauseated and decided to terminate the exam at that time. There is large amount of gastroesophageal reflux. IMPRESSION: Large gastroesophageal reflux. No evidence for intussusception.
[2024-01-12 21:22] LABS: Urine Alcohol Negative (Negative); Urine Barbiturate Negative (Negative); Urine Cocaine Negative (Negative); Urine Methadone Negative (Negative); Urine Opiates Negative (Negative); Urine Phencyclidine Negative (Negative)
[2024-01-12] MEDS: ACETAMINOPHEN TAB 325 MG TAB PO PRN (21:53)
[2024-01-12] MEDS: OSELTAMIVIR 60 MG/10 ML ORAL SYRINGE PO SCH (21:53)
[2024-01-12] MEDS: CALCIUM CARBONATE 500 MG CHEWABLE PO PRN (22:58)
[2024-01-13 09:24] LABS: Anisocytosis Slight; Basophils % (A) 0 %; Eosinophils % (A) 0 %; HCT 28.7 % (34.0-46.0); HGB 7.4 gm/dL (11.4-16.0); Hypochromasia Marked; Lymphocytes # (A) 0.8 k/uL (1.0-4.8); Lymphocytes % (A) 12 %; MCH 18.7 pg (25.0-35.0); MCHC 25.9 g/dL (31.0-37.0); MCV 72.3 fL (80.0-100.0); Mean Platelet Volume 7.6; Microcytosis Marked; Monocytes # (A) 0.3 k/uL (0-1.0); Monocytes % (A) 5 %; Neutrophils # (A) 5.3 k/uL (1.3-7.7); Neutrophils % (A) 81 %; Platelet Count 341 k/uL (150-450); Poikilocytosis Slight; RBC 3.97 m/uL (3.80-5.40); RDW 19.4 % (11.5-15.5); WBC 6.6 k/uL (3.8-10.6)
[2024-01-13] MEDS: SODIUM FERRIC GLUCONAT-SUCROSE 125 MG in SODIUM CHLORIDE 0.9% 100 ML IVPB SCH (09:57)
[2024-01-13] MEDS: LOSARTAN 25 MG TAB PO SCH (09:57)
--- NOTE | 2024-01-13 12:14 | P.PN ---
Subjective Progress Note Date: 01/13/24 CHIEF COMPLAINT: Abdominal pain HISTORY OF PRESENT ILLNESS: Patient's pain has resolved. She reports having bowel movements. She denies any nausea or vomiting. She is tolerating the clear liquids. She is requesting advancement of diet. Afebrile WBC down from 11.9-6.6 PHYSICAL EXAM: VITAL SIGNS: Reviewed. GENERAL: Well-developed in no acute distress. ABDOMEN: Soft. Nondistended. Nontender. ASSESSMENT: 1. Abdominal pain resolved 2. Constipation 3. Influenza A positive 4. COPD exacerbation 5. Elevated troponins, non-ST elevated [place]. Evaluated by cardiology 6. History of gastric bypass surgery PLAN: -Advance diet to regular -Continue supportive care -No surgical intervention planned -Surgical service will sign off. Please call with any questions or concerns Physician Senior Dentist note has been reviewed by physician. Signing provider agrees with the documented findings, assessment, and plan of care. Objective - Vital Signs Vital signs: Vital Signs Temp 97.0 F L 01/13/24 11:36 Pulse 62 01/13/24 11:41 Resp 20 01/13/24 11:36 BP 135/77 01/13/24 11:36 Pulse Ox 100 01/13/24 11:36 FiO2 Intake & Output 01/12/24 01/13/24 01/13/24 18:59 06:59 18:59 Intake Total 1130 250 Balance 1130 250 Weight 56 kg Intake: IV 10 Invasive Line 3 10 Intake, IV Titration 50 Amount cefTRIAXone 2 gm In 50 Sodium Chloride 0.9% 50 ml @ 100 mls/hr IVPB Q24H [facility] Rx#:[id number] Oral 1080 240 Other: # Voids 2 2 # Bowel Movements 1 - Labs CBC & Chem 7: 01/13/24 09:05 01/11/24 20:45 Labs: Abnormal Lab Results - Last 24 Hours (Table) 01/12/24 01/13/24 Range/Units 12:44 09:05 Hgb 7.4 L (11.4-16.0) gm/dL Hct 28.7 L (34.0-46.0) % MCV 72.3 L (80.0-100.0) fL MCH 18.7 L (25.0-35.0) pg MCHC 25.9 L (31.0-37.0) g/dL RDW 19.4 H (11.5-15.5) % Lymphocytes # 0.8 L (1.0-4.8) k/uL Iron 9 L (50-170) UG/DL % Saturation 2.99 L (12.00-45.00) Microbiology - Last 24 Hours (Table) 01/11/24 20:45 Blood Culture - Preliminary Blood 01/12/24 06:38 Gram Stain - Preliminary Sputum
--- NOTE | 2024-01-13 14:02 | P.PN ---
Subjective Progress Note Date: 01/13/24 Reason for Consult (text): NSTEMI History of present illness: This is a 63-year-old female with past medical history of COPD, tobacco use and dependence, recent diagnosis of pneumonia, hypertension, morbid obesity status post gastric bypass. We have been asked to evaluate the patient for non-ST elevated myocardial infarction. Patient states that she presented to the hospital due to shortness of breath. She was recently at [facility] was treated for pneumonia and signed out AMA. She now comes to [facility] from [place]. Patient denies having any chest pain. EKG sinus rhythm with nonspecific ST-T wave changes with suspected hypertensive heart disease and old septal GA Chest x-ray: Acute cardiopulmonary disease with right lung base. Findings suggestive of developing pneumonia. WBC 11.9, hemoglobin 7.7, platelet count 417. INR 0.9. Electrolytes are normal. BUN 26 and creatinine 0.8. Calcium 8, lactic acid 1.5. Troponin 0.079, 0.085, procalcitonin 0.09. Influenza A detected. Influenza B, RSV, COVID-19 not detected. Home cardiac medications: None 01/13 Patient is seen today in follow-up on the cardiac stepdown unit. No complaints of chest pain today. Blood pressure this morning 160/84, heart rate 71, pulse ox 99% on 3 L nasal cannula. Echocardiogram has been obtained. CT of the abdomen pelvis: Prior intussusception seen in the left upper quadrant is no longer visualized. No evidence of obstruction. Upper GI: Large gastroesophageal reflux. No evidence of intussusception. Physical examination: Gen: This is a thin appearing 63-year-old female in no acute respiratory distress. VS: reviewed HEENT: Head is atraumatic, normocephalic. Pupils equal, round. Sclerae is anicteric. NECK: Supple. No JVD. LUNGS: Bilateral wheezing and congestion. No intercostal retractions. HEART: Regular rate and rhythm. No murmur. ABDOMEN: Soft No tenderness. EXTREMITIES: No pedal edema. No calf tenderness. NEUROLOGICAL: Patient is awake, alert and oriented x3. Assessment: COPD exacerbation Influenza A Possible pneumonia Non-ST elevated myocardial infarction, type II secondary to COPD exacerbation/influenza Hypertension Tobacco use and dependence History of gastric bypass surgery History of alcohol abuse and polysubstance abuse GI symptoms with nausea vomiting diarrhea Plan: Continue patient's home cardiac medications Patient noted to have abnormal EKG and recommended cardiac catheterization or stress test prior to discharge once respiratory status is improved. Patient will be reassessed tomorrow for possible cardiac catheterization. Patient will be made n.p.o. tonight. Continue patient on aspirin 81 mg daily, atorvastatin 40 mg daily Hold on beta-zaid due to COPD Obtain 2-D echocardiogram and Doppler study report Further recommendations to follow based upon clinical course Thank you kindly for this consultation. Nurse practitioner note has been reviewed, I agree with documented findings and plan of care. Patient was seen and examined. Objective - Vital Signs Vital signs: Vital Signs Temp 97.7 F 01/13/24 07:56 Pulse 71 01/13/24 07:56 Resp 20 01/13/24 07:56 BP 161/84 01/13/24 07:56 Pulse Ox 99 01/13/24 07:56 FiO2 Intake & Output 01/12/24 01/13/24 01/13/24 18:59 06:59 18:59 Intake Total 1130 Balance 1130 Weight 56 kg Intake: Intake, IV Titration 50 Amount cefTRIAXone 2 gm In 50 Sodium Chloride 0.9% 50 ml @ 100 mls/hr IVPB Q24H [facility] Rx#:[id number] Oral 1080 Other: # Voids 2 2 # Bowel Movements 1 - Labs CBC & Chem 7: 01/13/24 09:05 01/11/24 20:45 Labs: Abnormal Lab Results - Last 24 Hours (Table) 01/12/24 Range/Units 12:44 Iron 9 L (50-170) UG/DL % Saturation 2.99 L (12.00-45.00) Microbiology - Last 24 Hours (Table) 01/11/24 20:45 Blood Culture - Preliminary Blood 01/12/24 06:38 Gram Stain - Preliminary Sputum
--- NOTE | 2024-01-13 14:07 | P.PN ---
Subjective Progress Note Date: 01/13/24 This is a 63-year-old female with medical history significant for COPD, hypertension, pack per day smoker. History of chronic alcohol use, and polysubstance use. Patient states that she has been sober for 17 years. Patient comes to the hospital with complaints of shortness of breath and cough ongoing for the last 2 days. No fever noted. Patient was recently admitted to [facility] for pneumonia states that she was discharged home with oxygen but her tanks were empty. She did leave AGAINST MEDICAL ADVICE from [facility]. She is also reporting crampy sharp abdominal discomfort states that her last bowel movement was 5 or 6 days ago. She is not having any chest discomfort. No nausea vomiting. Her chest x-ray shows a partially consolidative opacity in the right lower lobe consistent with an acute pneumonia. Abdominal pelvis CT shows nonobstructive calculus a 1.1 cm cyst on the left kidney there is no nephrolithiasis. Patient has post gastric bypass, consider gastritis of the bypass to distal stomach. Has elevated white count of 11.9, hemoglobin 7.7, platelet count of 417, sodium 138, potassium 4.0, BUN of 26, creatinine of 0.80. Noted that patient was in the this ER 1 week prior for similar symptoms and discharged with oral prednisone and azithromycin. Admitted to the hospital under medicine with pulmonary consultation. Started on oral azithromycin and IV solumedrol. General surgery was consulted for the constipation. 01/13/2024 Patient is seen in follow-up today on the medical floor. She reports improved shortness of breath that she does continue on 2 to 3 L of nasal cannula and is requesting home oxygen. Discussed with patient the need for home oxygen test prior to making those arrangements. Due to the EKG changes and troponin elevation cardiology is recommending to undergo a cardiac catheterization which will likely be tomorrow. Echocardiogram has been taken today and currently pending. Pulmonary following patient continues on IV steroids, IV Rocephin, Tamiflu, Symbicort and updrafts. Repeat abdominal pelvis CT is negative and upper GI series was completed patient has no evidence for bowel obstruction and her abdominal pain has completely resolved and she is tolerating diet. Review of Systems Constitutional: Denied any fatigue denied any fever. Cardio vascular: denied any chest pain, palpitations Gastrointestinal: denied any nausea, vomiting, diarrhea Pulmonary: Denied any shortness of breath cough Neurologic denied any new focal deficits All inpatient medications were reviewed and appropriate changes in these medications as dictated in the interval history and assessment and plan. PHYSICAL EXAMINATION: GENERAL: The patient is alert and oriented x3, not in any acute distress. Well developed, well nourished. HEENT: Pupils are round and equally reacting to light. EOMI. No scleral icterus. No conjunctival pallor. Normocephalic, atraumatic. No pharyngeal erythema. No thyromegaly. CARDIOVASCULAR: Scattered wheezing. PULMONARY: Chest is clear to auscultation, no wheezing or crackles. ABDOMEN: Soft, tender, nondistended, normoactive bowel sounds. No palpable organomegaly. MUSCULOSKELETAL: No joint swelling or deformity. EXTREMITIES: No cyanosis, clubbing, or pedal edema. NEUROLOGICAL: Gross neurological examination did not reveal any focal deficits. SKIN: No rashes. Assessment and Plan -Acute influenza with pneumonia -Hx of COPD with acute exacerbation failed outpatient therapy. -Acute hypoxic respiratory failure secondary to above -Troponin elevation rule out ACS, cardiology consultation although this is likely a type 2 [place] due to supply demand mismatch -Nausea vomiting, diarrhea likely due to acute gastritis, and also constipation which has resolved. No further reports of abdominal pain and diet has been upgraded to regular. -Chronic nicotine use 1 pack per day smoker -Hx of gastric bypass -Hx of alcoholism and polysubstance abuse currently at [facility] which patients states is for a "refresh." GI prophylaxis DVT prophylaxis Patient to continue on IV solumedrol, Oral azithromycin and updrafts. Started on tamiflu. Pulmonary following. General Surgery on consultation. Cardiology consultation; echocardiogram taken today and reports are pending possible cardiac catheterization or stress test while inpatient. Continue supportive care Repeat labs in the AM Patient may need home oxygen on discharge. The impression and plan of care has been dictated by Jessi Sawyer Nurse Practitioner as directed. Dr. Seth MD I have performed a history and physical examination and medical decision making of this patient, discussed the same with the dictator, and agree with the dictators assessment and plan as written, documented as a scribe. Based on total visit time, I have performed more than 50% of this visit. Objective - Vital Signs Vital signs: Vital Signs Temp 97.7 F 01/13/24 07:56 Pulse 64 01/13/24 08:19 Resp 20 01/13/24 07:56 BP 161/84 01/13/24 07:56 Pulse Ox 99 01/13/24 07:56 FiO2 Intake & Output 01/12/24 01/13/24 01/13/24 18:59 06:59 18:59 Intake Total 1130 10 Balance 1130 10 Weight 56 kg Intake: IV 10 Invasive Line 3 10 Intake, IV Titration 50 Amount cefTRIAXone 2 gm In 50 Sodium Chloride 0.9% 50 ml @ 100 mls/hr IVPB Q24H [facility] Rx#:[id number] Oral 1080 Other: # Voids 2 2 # Bowel Movements 1 - Labs CBC & Chem 7: 01/13/24 09:05 01/11/24 20:45 Labs: Abnormal Lab Results - Last 24 Hours (Table) 01/12/24 Range/Units 12:44 Iron 9 L (50-170) UG/DL % Saturation 2.99 L (12.00-45.00) Microbiology - Last 24 Hours (Table) 01/11/24 20:45 Blood Culture - Preliminary Blood 01/12/24 06:38 Gram Stain - Preliminary Sputum Assessment and Plan Time with Patient: Less than 30
--- NOTE | 2024-01-13 16:59 | CA ---
Transthoracic Echo Report Name: Caro Zarate Age: 63 Gender: F : 1960 Exam Date: 01/13/2024 10:07 Exam Location: [place] [facility] Ht (in): 63 Wt (lb): 123 Ordering Physician: Torri Brewster Attending/Referring Phys: [id number], Ney Chairman Olivia Crowder RDCS Procedure CPT: Indications: LVF Cardiac Hx: Technical Quality: Fair Contrast 1: Total Dose (mL): Contrast 2: Total Dose (mL): MEASUREMENTS (Male / Female) Normal Values 2D ECHO LV Diastolic Diameter PLAX 4.2 cm 4.2 - 5.9 / 3.9 - 5.3 cm LV Systolic Diameter PLAX 2.8 cm IVS Diastolic Thickness 1.1 cm 0.6 - 1.0 / 0.6 - 0.9 cm LVPW Diastolic Thickness 1.5 cm 0.6 - 1.0 / 0.6 - 0.9 cm LV Relative Wall Thickness 0.6 RV Internal Dim ED PLAX 3.8 cm LVOT Diameter 2.1 cm LA Systolic Diameter LX 4.0 cm 3.0 - 4.0 / 2.7 - 3.8 cm LV Diastolic Volume MOD 4C 121.9 cm??? LV Systolic Volume MOD 4C 54.8 cm??? LV Ejection Fraction MOD 4C 55.1 % LV Cardiac Index MOD 4C 3191.3 cm???/min???m??? LV Diastolic Length 4C 7.4 cm LV Systolic Length 4C 6.1 cm LV Diastolic Volume MOD 2C 97.2 cm??? LV Systolic Volume MOD 2C 33.9 cm??? LV Ejection Fraction MOD 2C 65.2 % LV Cardiac Index MOD 2C 3011.6 cm???/min???m??? LV Diastolic Length 2C 7.6 cm LV Systolic Length 2C 5.8 cm LA Volume 60.4 cm??? 18 - 58 / 22 - 52 cm??? LA Volume Index 38.3 cm???/m??? 16 - 28 cm???/m??? M-MODE Aortic Root Diameter MM 2.9 cm MV E Point Septal Separation 0.6 cm AV Cusp Separation MM 1.7 cm DOPPLER AV Peak Velocity 246.7 cm/s AV Peak Gradient 24.3 mmHg AV Mean Velocity 158.1 cm/s AV Mean Gradient 12.0 mmHg AV Velocity Time Integral 46.7 cm LVOT Peak Velocity 146.2 cm/s LVOT Peak Gradient 8.6 mmHg AV Area Cont Eq pk 2.1 cm??? MV Peak Velocity 207.0 cm/s MV Peak Gradient 17.1 mmHg MV Mean Velocity 97.6 cm/s MV Mean Gradient 5.0 mmHg MV Velocity Time Integral 59.0 cm MV Area PHT 2.4 cm??? Mitral E Point Velocity 151.6 cm/s Mitral A Point Velocity 181.9 cm/s Mitral E to A Ratio 0.8 MV Deceleration Time 318.3 ms MV E' Velocity 7.1 cm/s Mitral E to MV E' Ratio 21.5 TR Peak Velocity 281.1 cm/s TR Peak Gradient 31.6 mmHg Right Ventricular Systolic Press 36.6 mmHg FINDINGS Left Ventricle Left ventricular ejection fraction is estimated at 55-60 %. Mildly increased septal wall thickness. Moderately increased posterior wall thickness. Left ventricular cavity size normal. Right Ventricle Mild right ventricular dilatation. Mild pulmonary hypertension. Right Atrium Normal right atrial size. Left Atrium Mildly increased left atrial diameter. Mildly increased left atrial volume. Mildly increased left atrial area. Mitral Valve Mitral valve thickened. Mild mitral annular calcification. Aortic Valve Trileaflet aortic valve. Aortic valve sclerosis. Mild aortic stenosis with a peak gradient of 24 mmHg and a mean gradient of 12 mmHg. Tricuspid Valve Structurally normal tricuspid valve. Mild tricuspid regurgitation. Pulmonic Valve Structurally normal pulmonic valve. Trace pulmonic regurgitation. Pericardium No pericardial effusion. Aorta Normal size aortic root and proximal ascending aorta. CONCLUSIONS Normal LV systolic function mitral annular calcification Mild aortic stenosis Previewed by: Dr. Med Carbajal MD (Electronically Signed) Final Date: 13 January 2024 16:59
--- NOTE | 2024-01-13 17:37 | P.PN ---
Subjective Progress Note Date: 01/13/24 This is a pleasant 63-year-old female patient was coming into the hospital because of increased dyspnea cough chest congestion chest tightness and wheezing. The patient is known to have COPD and she is also a chronic smoker. She also has previous history of polysubstance abuse and alcoholism. The gavino ent was recently hospitalized at [facility] out in [facility] and she was having increased shortness of breath and she was given diagnosis of pneumonia. She ended up leaving [place]. We are not sure if the patient was given any form of antibiotics at time of discharge. She was recently evaluated in our emergency department on 01/05/2024 and a chest x-ray at that time showed COPD and interstitial prominence and signs of chronic bronchitis. She was sent home on a course of Z-Osorio and a prednisone burst taper. She was at [facility] and she was having worsening shortness of breath and she ended up coming into the hospital for further workup. At this point in time, the patient is on 3 L of oxygen by nasal cannula with a pulse ox of 96%. I reviewed the chest x-ray and it is showing some cardiomegaly. Nipple shadow on the right. Some increased interstitial markings bilaterally. No airspace disease or consolidation. The patient was also complaining of some abdominal pain. She was given a CAT scan of the abdomen that showed no acute intra-abdominal abnormalities. The patient has undergone previous gastric bypass surgery. The current body mass index is 19.1. The lung bases were essentially clear based on the CAT scan of the abdomen and pelvis that was done in the emergency department. The white cycle 11.9 with a hemoglobin of 7.7 and a platelet count of 417. She tested positive for influenza A. BUN was at 26 with a creatinine of 0.8 and sodium levels at 138. Troponins are 0.07 and 0.08 respectively x 2. Her EKG showed normal sinus rhythm. Old Q waves over the anteroseptal leads. No ST segment elevations or depression. She denies having any chest pain. The patient is currently hospitalized. She is on Tamiflu. She was also given empiric antibiotic coverage with Zithromax. She is on DuoNeb nebulized treatments [id number] and Symbicort on maintenance and she is also on IV Solu-Medrol 40 mg every 12 hours. Note that her Tmax was 102.4 at time of admission. On today's evaluation of 01/13/2024, the patient is feeling better and she feels less short of breath. Chest tightness and wheezing is improved compared to yesterday. Abdominal pain is resolved. The patient's diet will be advanced to regular. The patient is requesting more food. She is afebrile. She is hemodynamically stable. She remains on bronchodilators. She remains on Tamiflu. She is also on empiric antibiotic coverage with IV Rocephin. She remains on Solu-Medrol 40 mg every 12 hours. CAT scan of the abdomen was negative. Upper GI series showed evidence of GE reflux, no evidence of any intussusception. Echocardiogram was also completed and the patient was found to have a preserved LV function with an ejection fraction of 55 to 60%. There was mild RV dilatation and mild pulmonary hypertension. Mild aortic stenosis was also seen. Rest of the labs show a WBC count of 6.6, hemoglobin of 7.4 and the patient was iron deficient. Serum iron was low at 9. Objective - Vital Signs Vital signs: Vital Signs Temp 97.7 F 01/13/24 07:56 Pulse 64 01/13/24 08:19 Resp 20 01/13/24 07:56 BP 161/84 01/13/24 07:56 Pulse Ox 99 01/13/24 07:56 FiO2 Intake & Output 01/12/24 01/13/24 01/13/24 18:59 06:59 18:59 Intake Total 1130 10 Balance 1130 10 Weight 56 kg Intake: IV 10 Invasive Line 3 10 Intake, IV Titration 50 Amount cefTRIAXone 2 gm In 50 Sodium Chloride 0.9% 50 ml @ 100 mls/hr IVPB Q24H [facility] Rx#:[id number] Oral 1080 Other: # Voids 2 2 # Bowel Movements 1 - Exam GENERAL EXAM: Alert, 63-year-old white female, disheveled, hypertalkative and aggressive with interview, occasionally grabs her abdomen and apparent di scomfort. The patient is currently on 3 days of oxygen by nasal cannula. No use of accessory muscles of breathing and breathing is comfortable at this point in time. HEAD: Normocephalic and atraumatic EYES: Normal reaction of pupils, equal size. NOSE: Clear with pink turbinates. THROAT: No erythema or exudates. NECK: No masses, no JVD. CHEST: No chest wall deformity. LUNGS: Equal air entry with scattered wheezing and rales heard at the right base. CVS: S1 and S2 normal with no audible murmur, regular rhythm. No extra heart sounds ABDOMEN: No hepatosplenomegaly, hyperactive bowel sounds, no guarding or rigidity. SPINE: No scoliosis or deformity SKIN: No rashes CENTRAL NERVOUS SYSTEM: No focal deficits, tone is normal in all 4 extremities. EXTREMITIES: There is no peripheral edema, clubbing, or cyanosis. Peripheral pulses are intact. - Labs CBC & Chem 7: 01/13/24 09:05 01/11/24 20:45 Labs: Abnormal Lab Results - Last 24 Hours (Table) 01/12/24 Range/Units 12:44 Iron 9 L (50-170) UG/DL % Saturation 2.99 L (12.00-45.00) Microbiology - Last 24 Hours (Table) 01/11/24 20:45 Blood Culture - Preliminary Blood 01/12/24 06:38 Gram Stain - Preliminary Sputum Assessment and Plan Plan: Acute COPD exacerbation, secondary to acute influenza A infection and possibility of superimposed bacterial pneumonia is felt to be less likely. Reviewed the chest x-ray and the findings are essentially chronic. Presentation with fever, GI symptoms and worsening shortness of breath is consistent with acute influenza syndrome and COPD exacerbation. CAT scan of the abdomen was essentially negative for any acute intra-abdominal abnormalities Acute influenza syndrome, no previous vaccinations Abdominal pain nausea, vomiting, diarrhea/suspected acute gastroenteritis secondary to above. Abdominal and pelvis CT with contrast shows postsurgical changes to the stomach gastric bypass, technically suboptimal evaluation of bowel. No obvious bowel obstruction. Possible gastritis of the bypassed distal stomach. General surgery consulted to evaluate patient. This could be also manifestations of influenza syndrome. GI symptoms have improved. Upper GI series showed reflux without evidence of any intussusception. Elevated troponins, likely related to supply/demand mismatch, echocardiogram shows a preserved LV function Microcytic hypochromic anemia, r secondary to iron deficiency Recent hospitalization for pneumonia at outside facility, reportedly left AGAINST MEDICAL ADVICE Possible right lower lobe pulmonary nodule, likely of breast shadow Chronic obstructive pulmonary disease Current ongoing tobacco dependence History of gastric bypass History of polysubstance abuse History of alcoholism Plan: Clinically improving Continue supplemental oxygen, wean as tolerated to maintain oxygen saturation of 92% or greater, currently on 3 days of oxygen by nasal cannula Tamiflu to be completed for a total of 5 days DuoNeb nebulized treatments [id number] Continue IV Solu-Medrol 40 mg every 12 hours GI symptoms have improved and will advance diet to regular Protonix twice daily for GI prophylaxis Zofran already added as antiemetic General surgery regarding abdominal pain and post gastric bypass surgery Antibiotic coverage essentially empiric at this point in time Start IV iron replacement and the patient is going to see Venofer 125 mg IV for the next 3 days. IV fluids to KVO We will continue to follow
[2024-01-14] MEDS ORDERED: CAFFEINE CITRATE 60 MG/3 ML VIAL IV PRN (08:41)
[2024-01-14] MEDS ORDERED: REGADENOSON 0.4 MG/5 ML SYRINGE IV PRN (08:41)
[2024-01-14] MEDS ORDERED: AMINOPHYLLINE 500 MG/20 ML VIAL IV PRN (08:41)
[2024-01-14] MEDS: QUEtiapine 25 MG TAB PO STA (09:45)
--- NOTE | 2024-01-14 11:52 | P.PN ---
Subjective Progress Note Date: 01/14/24 Reason for Consult (text): NSTEMI History of present illness: This is a 63-year-old female with past medical history of COPD, tobacco use and dependence, recent diagnosis of pneumonia, hypertension, morbid obesity status post gastric bypass. We have been asked to evaluate the patient for non-ST elevated myocardial infarction. Patient states that she presented to the hospital due to shortness of breath. She was recently at [facility] was treated for pneumonia and signed out AMA. She now comes to [facility] from [place]. Patient denies having any chest pain. EKG sinus rhythm with nonspecific ST-T wave changes with suspected hypertensive heart disease and old septal [place] Chest x-ray: Acute cardiopulmonary disease with right lung base. Findings suggestive of developing pneumonia. WBC 11.9, hemoglobin 7.7, platelet count 417. INR 0.9. Electrolytes are normal. BUN 26 and creatinine 0.8. Calcium 8, lactic acid 1.5. Troponin 0.079, 0.085, procalcitonin 0.09. Influenza A detected. Influenza B, RSV, COVID-19 not detected. Home cardiac medications: None 01/13 Patient is seen today in follow-up on the cardiac stepdown unit. No complaints of chest pain today. Blood pressure this morning 160/84, heart rate 71, pulse ox 99% on 3 L nasal cannula. Echocardiogram has been obtained. CT of the abdomen pelvis: Prior intussusception seen in the left upper quadrant is no longer visualized. No evidence of obstruction. Upper GI: Large gastroesophageal reflux. No evidence of intussusception. Patient currently denies having any chest pain or shortness of breath. She states that is much better. She states she feels weak. Discussed with patient option of undergoing Lexiscan stress test which she was in agreement but when they came up to start the procedure, patient refused. Blood pressure 174/84, heart rate in the 60s, pulse ox 91% on room air. Echocardiogram reveals EF of 55 to 60%, mitral annular calcification, mild aortic stenosis. Physical examination: Gen: This is a thin appearing 63-year-old female in no acute respiratory distress. VS: reviewed HEENT: Head is atraumatic, normocephalic. Pupils equal, round. Sclerae is anicteric. LUNGS: Bilateral wheezing and congestion. No intercostal retractions. HEART: Regular rate and rhythm. No murmur. ABDOMEN: Soft No tenderness. EXTREMITIES: No pedal edema. No calf tenderness. NEUROLOGICAL: Patient is awake, alert and oriented x3. Assessment: COPD exacerbation Influenza A Possible pneumonia Non-ST elevated myocardial infarction, type II secondary to COPD exacerbation/influenza Hypertension Tobacco use and dependence History of gastric bypass surgery History of alcohol abuse and polysubstance abuse GI symptoms with nausea vomiting diarrhea Plan: Continue current cardiac medications Patient has refused Lexiscan stress test Patient is cleared for discharge and may follow-up with her primary care doctor or immunochemist for additional cardiac testing Cardiology will sign off this case and follow on an as-needed basis. Please reconsult for any new concerns. Nurse practitioner note has been reviewed, I agree with documented findings and plan of care. Patient was seen and examined. Objective - Vital Signs Vital signs: Vital Signs Temp 98.2 F 01/14/24 04:00 Pulse 66 01/14/24 07:41 Resp 18 01/14/24 04:00 BP 168/87 01/14/24 04:00 Pulse Ox 97 01/14/24 07:31 FiO2 Intake & Output 01/13/24 01/14/24 01/14/24 18:59 06:59 18:59 Intake Total 1347 600 Balance 1347 600 Weight 48.4 kg Intake: IV 10 10 Invasive Line 3 10 10 Intake, IV Titration 50 Amount cefTRIAXone 2 gm In 50 Sodium Chloride 0.9% 50 ml @ 100 mls/hr IVPB Q24H [facility] Rx#:[id number] Oral 1337 540 Other: # Voids 2 2 # Bowel Movements 1 - Labs CBC & Chem 7: 01/13/24 09:05 01/11/24 20:45 Labs: Abnormal Lab Results - Last 24 Hours (Table) 01/13/24 Range/Units 09:05 Hgb 7.4 L (11.4-16.0) gm/dL Hct 28.7 L (34.0-46.0) % MCV 72.3 L (80.0-100.0) fL MCH 18.7 L (25.0-35.0) pg MCHC 25.9 L (31.0-37.0) g/dL RDW 19.4 H (11.5-15.5) % Lymphocytes # 0.8 L (1.0-4.8) k/uL Microbiology - Last 24 Hours (Table) 01/11/24 20:45 Blood Culture - Preliminary Blood
[2024-01-14 12:46] VITALS: BMI 18.8
--- NOTE | 2024-01-14 15:22 | P.PN ---
Subjective Progress Note Date: 01/14/24 This is a pleasant 63-year-old female patient was coming into the hospital because of increased dyspnea cough chest congestion chest tightness and wheezing. The patient is known to have COPD and she is also a chronic smoker. She also has previous history of polysubstance abuse and alcoholism. The gavino ent was recently hospitalized at [facility] out in [facility] and she was having increased shortness of breath and she was given diagnosis of pneumonia. She ended up leaving [place]. We are not sure if the patient was given any form of antibiotics at time of discharge. She was recently evaluated in our emergency department on 01/05/2024 and a chest x-ray at that time showed COPD and interstitial prominence and signs of chronic bronchitis. She was sent home on a course of Z-Osorio and a prednisone burst taper. She was at [facility] and she was having worsening shortness of breath and she ended up coming into the hospital for further workup. At this point in time, the patient is on 3 L of oxygen by nasal cannula with a pulse ox of 96%. I reviewed the chest x-ray and it is showing some cardiomegaly. Nipple shadow on the right. Some increased interstitial markings bilaterally. No airspace disease or consolidation. The patient was also complaining of some abdominal pain. She was given a CAT scan of the abdomen that showed no acute intra-abdominal abnormalities. The patient has undergone previous gastric bypass surgery. The current body mass index is 19.1. The lung bases were essentially clear based on the CAT scan of the abdomen and pelvis that was done in the emergency department. The white cycle 11.9 with a hemoglobin of 7.7 and a platelet count of 417. She tested positive for influenza A. BUN was at 26 with a creatinine of 0.8 and sodium levels at 138. Troponins are 0.07 and 0.08 respectively x 2. Her EKG showed normal sinus rhythm. Old Q waves over the anteroseptal leads. No ST segment elevations or depression. She denies having any chest pain. The patient is currently hospitalized. She is on Tamiflu. She was also given empiric antibiotic coverage with Zithromax. She is on DuoNeb nebulized treatments [id number] and Symbicort on maintenance and she is also on IV Solu-Medrol 40 mg every 12 hours. Note that her Tmax was 102.4 at time of admission. On today's evaluation of 01/13/2024, the patient is feeling better and she feels less short of breath. Chest tightness and wheezing is improved compared to yesterday. Abdominal pain is resolved. The patient's diet will be advanced to regular. The patient is requesting more food. She is afebrile. She is hemodynamically stable. She remains on bronchodilators. She remains on Tamiflu. She is also on empiric antibiotic coverage with IV Rocephin. She remains on Solu-Medrol 40 mg every 12 hours. CAT scan of the abdomen was negative. Upper GI series showed evidence of GE reflux, no evidence of any intussusception. Echocardiogram was also completed and the patient was found to have a preserved LV function with an ejection fraction of 55 to 60%. There was mild RV dilatation and mild pulmonary hypertension. Mild aortic stenosis was also seen. Rest of the labs show a WBC count of 6.6, hemoglobin of 7.4 and the patient was iron deficient. Serum iron was low at 9. 01/14/2024, seen the patient for a follow-up. The patient is doing well. Her breathing is improved. No cough or sputum production. No chest tightness or wheezing on today's evaluation. At the same time, the patient is able to tolerate diet. No nausea or emesis. The patient was cleared from surgical standpoint and the patient's diet has been advanced. She remains on Tamiflu. She remains on IV Solu-Medrol. She remains on bronchodilators. fa in terms of her oxygenation, she is on 2 L of oxygen by nasal cannula with a pulse ox of 93%. Her blood work from today shows a WBC of 6.6, hemoglobin 7.4 with a platelet count of 341. The serum iron was low at 9 and the patient is receiving IV iron. No other significant events over the past 24 hours. Objective - Vital Signs Vital signs: Vital Signs Temp 99.1 F 01/14/24 09:51 Pulse 83 01/14/24 09:51 Resp 18 01/14/24 09:51 BP 190/92 01/14/24 09:51 Pulse Ox 98 01/14/24 09:51 FiO2 Intake & Output 01/13/24 01/14/24 01/14/24 18:59 06:59 18:59 Intake Total 1347 600 10 Balance 1347 600 10 Weight 48.4 kg Intake: IV 10 10 10 Invasive Line 3 10 10 Invasive Line 4 10 Intake, IV Titration 50 Amount cefTRIAXone 2 gm In 50 Sodium Chloride 0.9% 50 ml @ 100 mls/hr IVPB Q24H [facility] Rx#:[id number] Oral [id number] Other: # Voids 2 2 # Bowel Movements 1 - Exam GENERAL EXAM: Alert, 63-year-old white female, calm and comfortable, currently on 2 L of oxygen by nasal cannula HEAD: Normocephalic and atraumatic EYES: Normal reaction of pupils, equal size. NOSE: Clear with pink turbinates. THROAT: No erythema or exudates. NECK: No masses, no JVD. CHEST: No chest wall deformity. LUNGS: Equal air entry with scattered wheezing and rales heard at the right base. CVS: S1 and S2 normal with no audible murmur, regular rhythm. No extra heart sounds ABDOMEN: No hepatosplenomegaly, hyperactive bowel sounds, no guarding or rigidity. SPINE: No scoliosis or deformity SKIN: No rashes CENTRAL NERVOUS SYSTEM: No focal deficits, tone is normal in all 4 extremities. EXTREMITIES: There is no peripheral edema, clubbing, or cyanosis. Peripheral pulses are intact. - Labs CBC & Chem 7: 01/13/24 09:05 01/11/24 20:45 Labs: Microbiology - Last 24 Hours (Table) 01/11/24 20:45 Blood Culture - Preliminary Blood Assessment and Plan Plan: Acute COPD exacerbation, secondary to acute influenza A infection and possibility of superimposed bacterial pneumonia is felt to be less likely. Clinically improving. Acute hypoxic respiratory failure patient is currently on 2 L of O2 nasal cannula Acute influenza syndrome, no previous vaccinations, currently on Tamiflu Abdominal pain nausea, vomiting, diarrhea/suspected acute gastroenteritis secondary to above. Abdominal and pelvis CT with contrast shows postsurgical changes to the stomach gastric bypass, technically suboptimal evaluation of bowel. No obvious bowel obstruction. Possible gastritis of the bypassed distal stomach. General surgery consulted to evaluate patient. This could be also manifestations of influenza syndrome. GI symptoms have improved. Upper GI series showed reflux without evidence of any intussusception. The patient's diet has been advanced and the patient has no active GI symptoms at this point in time Elevated troponins, likely related to supply/demand mismatch, echocardiogram shows a preserved LV function Microcytic hypochromic anemia, r secondary to iron deficiency Recent hospitalization for pneumonia at outside facility, reportedly left AGAINST MEDICAL ADVICE Possible right lower lobe pulmonary nodule, likely of breast shadow Chronic obstructive pulmonary disease Current ongoing tobacco dependence History of gastric bypass History of polysubstance abuse History of alcoholism Plan: Clinically improving Continue supplemental oxygen, wean as tolerated to maintain oxygen saturation of 92% or greater, currently on 3 days of oxygen by nasal cannula Tamiflu to be completed for a total of 5 days DuoNeb nebulized treatments [id number] Continue IV Solu-Medrol 40 mg every 12 hours, transition this patient to a prednisone burst taper as of tomorrow GI symptoms have improved and will advance diet to regular Protonix twice daily for GI prophylaxis Zofran already added as antiemetic General surgery regarding abdominal pain and post gastric bypass surgery Antibiotic coverage essentially empiric at this point in time Continue IV iron replacement and the patient is going to see Venofer 125 mg IV for the next 3 days. Monitor hemoglobin Increase mobility IV fluids to KVO We will continue to follow
[2024-01-14] MEDS: METOPROLOL TARTRATE 25 MG TAB PO SCH (16:47)
[2024-01-14 17:03] VITALS: BP 171/81; PULSE 86; RESP 20; TEMP 98.2
[2024-01-14] MEDS ORDERED: METOPROLOL TARTRATE 25 MG TAB PO SCH (21:00)
--- NOTE | 2024-01-17 22:13 | P.DS ---
Providers Date of admission: 01/11/24 23:39 Attending physician: Rob Box Consults: 01/11/24 23:36 Consult Physician Routine Consulting Provider: Stephon Michelle Consult Reason/Comments: COPD/Pneumonia Do you want consulting provider notified?: Yes 01/11/24 23:37 Consult Physician Routine Consulting Provider: Rahul Goss Consult Reason/Comments: NSTEMI Do you want consulting provider notified?: Yes Primary care physician: Physician Nonstaff Hospital Course: Final Diagnosis -Acute influenza with pneumonia -Hx of COPD with acute exacerbation failed outpatient therapy. -Acute hypoxic respiratory failure secondary to above -Troponin elevation rule out ACS, cardiology consultation although this is likely a type 2 RI due to supply demand mismatch -Nausea vomiting, diarrhea likely due to acute gastritis, and also constipation which has resolved. No further reports of abdominal pain and diet has been upgraded to regular. -Chronic nicotine use 1 pack per day smoker -Hx of gastric bypass -Hx of alcoholism and polysubstance abuse currently at [facility] which patients states is for a "refresh." Discharge Disposition Patient stable for discharge home, guarded prognosis as patient did refuse to undergo cardiac stress testing and cardiac catheterization this admission. Patient follows up with Dr. Dannie Marroquin and recommended to follow up 1 to 2 days, patients she has made a follow up appointment and will be set up with a financial sales professional by her PCP. Recommending for patient to have an event monitor placed on an outpatient basis for further monitoring for any tachy-arrhythmias. Patient has been started on atorvastain, aspirin 81 mg, losartan. Patient to continue on oral prednisone taper and complete course of oral tamiflu on discharge. Patient has been set up with a new medical supplier for home oxygen and has had tanks deliverered prior to discharge. Recommending to repeat BMP and CBC in 2 to 3 days. Hospital Course This is a 63-year-old female with medical history significant for COPD, hypertension, pack per day smoker. History of chronic alcohol use, and polysubstance use. Patient states that she has been sober for 17 years. Patient comes to the hospital with complaints of shortness of breath and cough ongoing for the last 2 days. No fever noted. Patient was recently admitted to [facility] for pneumonia states that she was discharged home with oxygen but her tanks were empty. She did leave AGAINST MEDICAL ADVICE from [facility]. She is also reporting crampy sharp abdominal discomfort states that her last bowel movement was 5 or 6 days ago. She is not having any chest discomfort. No nausea vomiting. Her chest x-ray shows a partially consolidative opacity in the right lower lobe consistent with an acute pneumonia. Abdominal pelvis CT shows nonobstructive calculus a 1.1 cm cyst on the left kidney there is no nephrolithiasis. Patient has post gastric bypass, consider gastritis of the bypass to distal stomach. Has elevated white count of 11.9, hemoglobin 7.7, platelet count of 417, sodium 138, potassium 4.0, BUN of 26, creatinine of 0.80. Noted that patient was in the this ER 1 week prior for similar symptoms and discharged with oral prednisone and azithromycin. Admitted to the hospital under medicine with pulmonary consultation. Started on oral azithromycin and IV solumedrol. General surgery was consulted for the constip ation. Patient was found to be positive for influenza A and was started on tamiflu. Patient improved, shortness of breath has resolved, no cough, no fever. Patient had bowel movement had repeat abdominal imaging showing no evidence of obstruction. Upper GI series reveals large gastroesophageal relfux no evidence for intussception. Cardiology consulted for the troponin elevation and EKG changes. Echocardiogram done showing normal LV systolic function, and mitral annular calcification, mild aortic stenosis. Patient had brief episode of tachy arrythmia with heart rate up to the 170s unable to be captured on EKG, no chest pain noted at that time, cardiology did request patient to stay for further evaluation, patient had refused and wants to follow up with her primary PCP and has made an appt for follow up. This incident had occurred after patient was discharged and awaiting oxygen delivery. White blood cell count of 6.6, hemoglobin 7.4. Had iron studies done showing iron level of 9, TIBC 301, % saturation of 2.99, transferrin level of 215. Patient received IV iron, and recommending to take oral iron twice a day on discharge and continue on bowel regimen to avoid constipation. Denies chest pain, denies shortness of breath, no abdominal pain, no nausea vomiting or diarrhea. Lungs are clear, S1 S2 auscultated, abdomen soft and nontender. Alert x 3 and focal neurological exam is negative. Please see medication reconciliation for a list of current medications. Thank you for allowing us to participate in the care of this patient. The impression and plan of care has been dictated by Jessi Sawyer, Nurse Practitioner as directed. Dr. Seth MD I have performed a history and physical examination and medical decision making of this patient, discussed the same with the dictator, and agree with the dictators assessment and plan as written, documented as a scribe. Based on total visit time, I have performed more than 50% of this visit. Patient Condition at Discharge: Fair Plan - Discharge Summary Discharge Rx Participant: Yes New Discharge Prescriptions: New Atorvastatin [Lipitor] 40 mg PO DAILY #30 tab Oseltamivir Phosphate 30 mg PO Q12H 5 Days #50 ml Omeprazole [PriLOSEC] 20 mg PO AC-BID #60 cap Budesonide-Formot 160-4.5 Mcg [Symbicort 160-4.5 Mcg Inhaler] 2 puff INHALATION RT-BID #1 each Ferrous Sulfate [Feosol] 325 mg PO BID #60 tab predniSONE 0 mg PO DIRECTED 16 Days #38 tab Aspirin 81 mg PO DAILY #30 tab Losartan [Cozaar] 75 mg PO DAILY 30 Days #90 tab Nicotine 21Mg/24Hr Patch [Habitrol] 1 patch TRANSDERM DAILY patch Docusate [Colace] 100 mg PO BID #60 capsule Continue ondansetron HCL [Zofran] 8 mg PO Q6H PRN PRN Reason: Nausea And Vomiting guaiFENesin [guaiFENesin Oral Solution] 200 mg PO Q4H PRN PRN Reason: Cough Albuterol Nebulized [Ventolin Nebulized] 2.5 mg INHALATION RT-Q4H PRN PRN Reason: Shortness Of Breath Thiamine [Vitamin B-1] 100 mg PO DAILY Multivitamins, Thera [Multivitamin (formulary)] 1 tab PO DAILY Acetaminophen Tab [Tylenol] 650 mg PO Q4H PRN PRN Reason: Fever And/ Or Pain Discontinued Magnesium Hydroxide [Milk of Magnesia] 2,400 mg PO BID PRN PRN Reason: Constipation Ibuprofen [Motrin Ib] 600 mg PO Q6H PRN PRN Reason: Fever And/ Or Pain Loperamide HCl [Imodium A-D] 4 mg PO BID PRN PRN Reason: Diarrhea Docusate [Colace] 100 mg PO BID PRN PRN Reason: Constipation Chlorpheniramine Maleate [Chlor-Trimeton] 4 mg PO Q4H PRN PRN Reason: Allergy Symptoms Mag Hydrox/Aluminum Hyd/Simeth [Mylanta Maximum Strength Liq] 30 ml PO Q4H PRN PRN Reason: Gi Upset Calcium/Magnesium/Zinc/Vitamin D 1 tab PO DAILY PRN PRN Reason: Cramping Azithromycin [Zithromax Z Pack] See Taper PO DIRECTED Discharge Medication List Acetaminophen Tab [Tylenol] 650 mg PO Q4H PRN 01/05/24 [History] Multivitamins, Thera [Multivitamin (formulary)] 1 tab PO DAILY 01/05/24 [History] Thiamine [Vitamin B-1] 100 mg PO DAILY 01/05/24 [History] guaiFENesin [guaiFENesin Oral Solution] 200 mg PO Q4H PRN 01/05/24 [History] ondansetron HCL [Zofran] 8 mg PO Q6H PRN 01/05/24 [History] Albuterol Nebulized [Ventolin Nebulized] 2.5 mg INHALATION RT-Q4H PRN 01/11/24 [History] Aspirin 81 mg PO DAILY #30 tab 01/14/24 [Rx] Atorvastatin [Lipitor] 40 mg PO DAILY #30 tab 01/14/24 [Rx] Budesonide-Formot 160-4.5 Mcg [Symbicort 160-4.5 Mcg Inhaler] 2 puff INHALATION RT-BID #1 each 01/14/24 [Rx] Docusate [Colace] 100 mg PO BID #60 capsule 01/14/24 [Rx] Ferrous Sulfate [Feosol] 325 mg PO BID #60 tab 01/14/24 [Rx] Losartan [Cozaar] 75 mg PO DAILY 30 Days #90 tab 01/14/24 [Rx] Nicotine 21Mg/24Hr Patch [Habitrol] 1 patch TRANSDERM DAILY patch 01/14/24 [Rx] Omeprazole [PriLOSEC] 20 mg PO AC-BID #60 cap 01/14/24 [Rx] Oseltamivir Phosphate 30 mg PO Q12H 5 Days #50 ml 01/14/24 [Rx] predniSONE 0 mg PO DIRECTED 16 Days #38 tab 01/14/24 [Rx] Follow up Appointment(s)/Referral(s): Dannie Marroquin MD [Other] - 1-2 Days (Internal Medicine, PCP please call and make appointment ) Ambulatory/Diagnostic Orders: Basic Metabolic Panel [LAB.AMB] Time Frame: 3 Days, Location: None Selected Complete Blood Count w/diff [LAB.AMB] Time Frame: 3 Days, Location: None Selected Patient Instructions/Handouts: Influenza (DC), COPD (Chronic Obstructive Pulmonary Disease) (DC), Anemia (DC) Activity/Diet/Wound Care/Special Instructions: [employer] will deliver portable oxygen tank to the hospital today - once patient has portable tank and is discharged, she needs to call [employer] @[phone] and notified them what time she will be at the house she is staying at [facility] and they will deliver the concentrator and the rest of the oxygen equipment. Recommend to continue on oral ferrous sulfate BID and continue on medication to prevent constipation. Continue course of tamiflu for the next 5 days. Continue on budesonide inhaler twice a day Recommend to follow up with your PCP in the next 1 to 2 days. Follow up with cardiology regarding recommendations to undergo cardiac catheterization or cardiac stress test. Recommend to quit smoking. Continue on oxygen support. Discharge Disposition: HOME SELF-CARE
--- NOTE | 2024-01-18 15:10 | CDI ---
Documentation Clarification Form Date: 01/18/24 From: Juan Ho, CLINT, RN Phone: [phone] Admit Date: 01/11/2024 11:39:00 PM Patient Name: Caro Zarate Visit Number: [id number] Discharge Date: 01/14/2024 06:24:00 PM ATTENTION: The Clinical Documentation Specialists (CDI) and [facility] Coding Staff appreciate your assistance in clarifying documentation. Please respond to the clarification below the line at the bottom and electronically sign. The CDI & [facility] Coding staff will review the response and follow-up if needed. Please note: Queries are made part of the Legal Health Record. If you have any questions, please contact the author of this message via ITS. Dr. Ann Sepsis was documented in the ED note on 01/11, but is not noted in subsequent documentation. Clarification is requested. History/Risk Factors: 63 yo female admitted with influenza, pneumonia, acute exacerbation of COPD, acute hypoxic respiratory failure, Type 2 FL (Discharge summary ) Clinical Indicators: ED note 01/11 reports fever, chills. Pulmonology consult 01/12 presentation with fever, GI symptoms and worsening shortness of breath WBC 11.9 (01/11) 6.6 (01/13) Differential Neutrophils 90% (01/11), 81 % (01/13) Blood cultures negative x 2 Influenza A detected per PCR 01/11 Temperature 01/11 102.4, 01/12 100.1, 99.8, 01/13 98.4, 98.1 Pulse 01/11 89-97, 01/12 78-100, 01/13 68-64, 72-72 Treatment: Azithromycin 500 mg po stat on 01/11, then once daily starting 01/12 Rocephin 2 gm IVPB 01/11, then Q24H Solumedrol 40 mg IV q12hr 01/12 DC to home with prednisone taper on Tylenol 650 mg po q4h prn pain/fever was given 01/11 01/13 After work up and study, please clarify if the sepsis was: [ x ] sepsis ruled in [ ] sepsis ruled out [ ] Other condition, please specify [ ] Unable to determine MTDD
== END 2024-01-14 18:24 | disposition home or self-care (01) | DRG 871 ==
LOC: EC 20:03 → 3SCARD 23:39
PROVIDERS: ADMIT Hospitalist; ATTEND Hospitalist
DX: A41.9 Sepsis, unspecified organism (principal); I21.A1 Myocardial infarction type 2; J10.00 Influenza due to other identified influenza virus with unspecified type of pneumonia; J96.01 Acute respiratory failure with hypoxia; J44.0 Chronic obstructive pulmonary disease with (acute) lower respiratory infection; J44.1 Chronic obstructive pulmonary disease with (acute) exacerbation; I27.20 Pulmonary hypertension, unspecified; D50.9 Iron deficiency anemia, unspecified; F10.21 Alcohol dependence, in remission; I11.9 Hypertensive heart disease without heart failure; J10.2 Influenza due to other identified influenza virus with gastrointestinal manifestations; F14.11 Cocaine abuse, in remission; I08.0 Rheumatic disorders of both mitral and aortic valves; I49.1 Atrial premature depolarization; K29.00 Acute gastritis without bleeding; K21.9 Gastro-esophageal reflux disease without esophagitis; K59.09 Other constipation; N28.1 Cyst of kidney, acquired; N20.0 Calculus of kidney; I25.2 Old myocardial infarction; R91.1 Solitary pulmonary nodule; F17.210 Nicotine dependence, cigarettes, uncomplicated; Z79.899 Other long term (current) drug therapy; Z96.612 Presence of left artificial shoulder joint; Z96.611 Presence of right artificial shoulder joint; Z98.84 Bariatric surgery status; Z82.5 Family history of asthma and other chronic lower respiratory diseases
CPT/HCPCS: 36415; 71045; 71046; 74176; 74177; 74240; 80053; 80306; 83540; 83550; 83605; 84145; 84484; 85025; 85610; 85730; 87040; 87070; 87205; 87449; 87636; 93005; 93306; 94640; 94760; 96365; 96366; 96375; 99285